=== PATIENT | male | born 1950 | race Caucasian/White ===

== ENCOUNTER → 2017-07-19 | Outpatient (CLI) | payer BC ==
--- NOTE | 2017-07-19 19:20 | MR ---
EXAMINATION TYPE: MR knee RT wo con DATE OF EXAM: 07/19/2017 COMPARISON: NONE HISTORY: Rt knee inner pain/medial since Jun 15, 2017 that improved one week ago per patient TECHNIQUE: Multiplanar, multisequence images of the knee is performed without IV contrast. FINDINGS: MEDIAL MENISCUS: Anterior horn is intact without tear. Triangular shape increased signal posterior ho rn medial meniscus does not extend to articular surface. LATERAL MENISCUS: Posterior horn has irregular signal and fraying inferiorly extending to articular s urface. Anterior horn has a vertical oblique signal extending to articular surface sagittal image 24. CRUCIATE LIGAMENTS: The anterior and posterior cruciate ligaments are intact and unremarkable. COLLATERAL LIGAMENTS: The medial collateral ligament and lateral collateral ligament complex are inta ct and unremarkable. EXTENSOR MECHANISM: Visualized quadriceps and patellar tendons are intact. EFFUSION: There is a small suprapatellar joint effusion. POPLITEAL CYST: No popliteal/torres cyst. TRICOMPARTMENT SPACES: There is mild to moderate tricompartment joint space loss and spurring. CARTILAGE: There is cartilaginous loss with fissuring medial tibiofemoral compartment. No full-thickn ess loss is present. No significant chondromalacia patella noted. BONE MARROW SIGNAL: No focal abnormal marrow signal is appreciated. OTHER: No additional significant abnormality is appreciated. IMPRESSION: 1. Background mild to moderate tricompartment degenerative changes as detailed above. 2. Small suprapatellar joint effusion. 3. Suspected full-thickness tears anterior and posterior horn of lateral meniscus. 4. Probable intrasubstance tear posterior horn medial meniscus
== END | disposition home or self-care (01) ==
LOC: RADMRIMAIN 18:16
PROVIDERS: ATTEND Orthopaedic Surgery
DX: M25.461 Effusion, right knee (principal); M76.891 Other specified enthesopathies of right lower limb, excluding foot

== ENCOUNTER 2017-08-22 09:45 | Day surgery (SDC) | payer BC ==
[2017-08-17 13:08] VITALS: BMI 39.9
--- NOTE | 2017-08-21 10:58 | HP ---
HISTORY AND PHYSICAL HISTORY: Kishan Perez is a 67-year-old patient seen with right knee pain. We discussed treatment options. He elected to proceed with arthroscopy. Consent was obtained. Medical clearance provided by Dr. Gonzalez. PAST MEDICAL HISTORY: [id number], diabetes, hypertension, gout. PAST SURGICAL HISTORY: Appendectomy, left knee arthroscopy. DAILY MEDICATIONS: Allopurinol, glipizide, lisinopril, metformin, Propanol. ALLERGIES: PENICILLIN, SULFA. SOCIAL HISTORY: Patient denies current tobacco use. PHYSICAL EXAMINATION: Right knees range of motion is -1 to 120 degrees. There is a mild effusion present. Tenderness along the medial lateral joint lines. There is a positive medial Shaniqua's, positive lateral Shaniqua's. Ligaments stable. Hip rotation without pain. Distal neurovascular exam intact. RADIOGRAPHS: Right knee radiographs reveal moderate osteoarthritis an MRI of the right knee reveal medial lateral meniscal tears. IMPRESSION: 1. Internal derangement, right knee with medial lateral meniscal tears. 2. Hypertension. 3. Fpw-[id number]-[id number] diabetes. PLAN: Right knee arthroscopy with partial meniscectomy and debridement. MMODL / IJN: [id number] /
[~2017-08-22 09:45] MED LIST: LACTATED RINGERS 1,000 ML IV SCH; MORPHINE SULFATE 4 MG/ML SYRINGE IV PRN; ONDANSETRON 4 MG/2 ML VIAL IVP PRN
[2017-08-22] MEDS ORDERED: ONDANSETRON 4 MG/2 ML VIAL ONE (10:43)
[2017-08-22 10:48] LABS: Glucose,Whole Blood 222 mg/dL (75-99)
[2017-08-22] MEDS ORDERED: PROPOFOL 10 MG/ML 20 ML VIAL IV ONE (12:54)
[2017-08-22] MEDS ORDERED: fentaNYL (PF) 50 MCG/ML 2 ML AMP ONE (12:54)
[2017-08-22] MEDS ORDERED: MIDAZOLAM 2 MG/2 ML VIAL ONE (12:54)
[2017-08-22] MEDS ORDERED: SUCCINYLCHOLINE CHLORIDE 100 MG/5 ML SYR IV ONE (12:54)
[2017-08-22] MEDS ORDERED: LIDOCAINE 1% INJ 10MG/ML (20 ML MDV) ONE (12:54)
[2017-08-22] MEDS ORDERED: ePHEDrine SULFATE/0.9% NACL/PF 50 MG/5 ML SYRINGE IV ONE (12:54)
[2017-08-22] MEDS ORDERED: BUPIVACAINE (PF) 0.25% 30 ML VIAL SQ ONE (13:18)
[2017-08-22] MEDS ORDERED: LACTATED RINGERS 1,000 ML IV ONE (13:35)
--- NOTE | 2017-08-22 13:48 | P.OP ---
Date of Procedure: 08/22/17 Preoperative Diagnosis: Internal derangement right knee Postoperative Diagnosis: 1. Tear medial and lateral meniscus right knee 2. Grade 3 chondromalacia medial femoral condyle right knee 3. Grade 3 chondromalacia lateral femoral condyle right knee 4. Grade 2 chondromalacia patella right knee 5. Reactive synovitis medial and suprapatellar compartments right knee Procedure(s) Performed: 1. Arthroscopic partial medial and lateral meniscectomy right knee 2. Arthroscopic chondroplasty medial femoral condyle right knee 3. Arthroscopic chondroplasty lateral femoral condyle right knee 4. Arthroscopic chondroplasty patella right knee 5. Arthroscopic partial synovectomy medial and suprapatellar compartments right knee Implants: none Anesthesia: CARLEENA, local Surgeon: Messi Carpio Estimated Blood Loss (ml): 7 Pathology: none sent Condition: stable Disposition: PACU Indications for Procedure: 67-year-old patient seen with progressive right knee pain. After treatment options were discussed, he elected to proceed with arthroscopy. Operative Findings: see description of procedure Description of Procedure: Patient was taken to the operative suite. Patient underwent a general anesthetic by the department of anesthesia. Patient was given preoperative antibiotics. The right lower extremity was placed in a well-padded arthroscopic leg covington. The right leg was prepped and draped in the normal sterile orthopedic fashion. A lateral parapatellar and suprapatellar incision was made. Trochars were inserted. Arthroscopy was initiated. Suprapatellar pouch revealed diffuse thick reactive synovitis. The patellofemoral joint appeared to articulate congruently. There grade 2 chondromalacia with osteochondral tears present mainly involving the lateral facet. The scope was guided into the medial gutter. No loose bodies or plica were identified. The scope was then guided into the medial compartment. A medial parapatellar incision was made. Trocar inserted followed by probe. There was a radial tear posterior horn medial meniscus. There were grade 3 chondromalacia changes of the medial femoral condyle with osteochondral tears. There was reactive synovitis anteriorly. I performed a partial medial meniscectomy down to stable tissue. I performed a chondroplasty of the medial femoral condyle down to stable tissue followed by partial synovectomy. The residual meniscus and osteochondral surface was stable. Scope and probe were then guided into the intercondylar notch. Cruciates were identified, probed and found to be stable. The scope and probe were then guided into lateral compartment. There was a complex tear posterior horn lateral meniscus which extended into the midbody. There were grade 3 chondromalacia changes of the lateral femoral condyle with osteochondral tears present. No reactive synovitis. I performed a partial lateral meniscectomy down to stable tissue. I performed a chondroplasty of the lateral femoral condyle down to stable tissue. I performed a partial synovectomy. The residual meniscus and osteochondral surface were both stable. The scope was in guided back into the suprapatellar compartment. I introduced a motorized shaver into the suprapatellar compartment. I debrided some piecemeal fragments of meniscus. I performed a chondroplasty of the patella down to stable tissue. I performed a partial synovectomy. Shaver was removed. I took one more look around the entire knee, no residual debris. Instruments were now removed from the joint. The joint was infiltrated with .25 % Marcaine. Steri-Strips were applied to the portal sites. Sterile dressings were applied. The patient was placed into a NIXON hose. No tourniquet was utilized. The patient was awakened, transferred to a bed and taken to recovery stable satisfactory condition.
[2017-08-22 13:58] VITALS: TEMP 97
[2017-08-22 14:10] LABS: Glucose,Whole Blood 148 mg/dL (75-99)
[2017-08-22 14:58] VITALS: RESP 16
[2017-08-22 15:17] VITALS: BP 142/80; PULSE 70
== END 2017-08-22 15:45 | disposition home or self-care (01) ==
LOC: OR 09:45
PROVIDERS: ATTEND Orthopaedic Surgery
DX: S83.241A Other tear of medial meniscus, current injury, right knee, initial encounter (principal); S83.281A Other tear of lateral meniscus, current injury, right knee, initial encounter; X58.XXXA Exposure to other specified factors, initial encounter; M94.261 Chondromalacia, right knee; M22.41 Chondromalacia patellae, right knee; M65.861 Other synovitis and tenosynovitis, right lower leg; M25.461 Effusion, right knee; M17.11 Unilateral primary osteoarthritis, right knee; E11.9 Type 2 diabetes mellitus without complications; I10 Essential (primary) hypertension; M10.9 Gout, unspecified; R25.1 Tremor, unspecified; Z79.84 Long term (current) use of oral hypoglycemic drugs; Z79.899 Other long term (current) drug therapy; Z88.6 Allergy status to analgesic agent; Z88.0 Allergy status to penicillin; Z88.2 Allergy status to sulfonamides
CPT/HCPCS: 29880; J2250; J0690; J2001; J3010; J0330; J2704

== ENCOUNTER 2018-11-07 18:36 | Inpatient (IN) | payer MEDICARE, OTHER ==
[2018-11-07] MEDS ORDERED: ACETAMINOPHEN TAB 500 MG TAB PO STA (19:23)
--- NOTE | 2018-11-07 19:29 | ED ---
General Adult HPI - General Chief complaint: Recheck/Abnormal Lab/Rx Stated complaint: Hyperglycemia Time Seen by Provider: 11/07/18 18:48 Source: patient, EMS Mode of arrival: EMS Limitations: no limitations - History of Present Illness Initial comments: 68-year-old male patient with past medical history significant for diabetes mellitus presents to the emergency department today for evaluation of elevated blood sugar. Patient states he did call EMS because he was too weak to get up on his own. Patient is febrile with a temperature of 102F. Patient states his blood sugar was 476 prior to coming in. Patient states that he was recently started on insulin" adults this week however his sugars continued to be elevated. Patient states he is currently being treated for urinary tract infection, states he has been taking antibiotics for 1 week. Denies any nausea, vomiting, chest pain, shortness of breath. Denies any abdominal pain. Patient denies any recent rash, shortness breath, chest pain, diarrhea, constipation, back pain, numbness, tingling, dizziness, weakness, headache, visual changes, or any other complaints. - Related Data Home Medications Medication Instructions Recorded Confirmed Allopurinol [Zyloprim] 300 mg PO DAILY 08/17/17 11/07/18 Propranolol HCl [Propranolol HCl 160 mg PO BID 08/17/17 11/07/18 ER] glipiZIDE [Glucotrol] 5 mg PO BID 08/17/17 11/07/18 Insulin Detemir [Levemir Flextouch] 20 units SQ HS 11/07/18 11/07/18 Allergies Allergy/AdvReac Type Severity Reaction Status Date / Time Sulfa (Sulfonamide Allergy Severe Anaphylaxis Verified 11/07/18 18:46 Antibiotics) Penicillins Allergy Unknown Unknown Verified 11/07/18 18:46 Childhood Review of Systems ROS Statement: Those systems with pertinent positive or pertinent negative responses have been documented in the HPI. ROS Other: All systems not noted in ROS Statement are negative. Past Medical History Past Medical History: Diabetes Mellitus Additional Past Medical History / Comment(s): GOUT, BENIGN ESSENTIAL TREMORS., STATES NUMBNESS FROM KNEES TO FEET CAUSING TROUBLE WITH BALANCE-USING CANE., PT STATES LISINOPRIL TAKE TO PROTECT KIDNEYS. History of Any Multi-Drug Resistant Organisms: None Reported Past Surgical History: Orthopedic Surgery Additional Past Surgical History / Comment(s): LEFT KNEE ARTHROSCOPIC Past Anesthesia/Blood Transfusion Reactions: No Reported Reaction Past Psychological History: No Psychological Hx Reported Smoking Status: Former smoker Past Alcohol Use History: Rare Past Drug Use History: None Reported - Past Family History Father Family Medical History: Cancer Additional Family Medical History / Comment(s): PROSTATE CANCER General Exam Limitations: no limitations General appearance: alert, in no apparent distress, other (Physical well-develop ed, well-nourished adult male patient in no acute distress. Vital signs upon presentation are temperature 102.0F, pulse 90, respirations 18, blood pressure 136/101, pulse ox 93% on room air.) Eye exam: Present: normal appearance, PERRL, EOMI. Absent: scleral icterus, conjunctival injection, periorbital swelling ENT exam: Present: normal exam, normal oropharynx, mucous membranes moist Respiratory exam: Present: normal lung sounds bilaterally. Absent: respiratory distress, wheezes, rales, rhonchi, stridor Cardiovascular Exam: Present: regular rate, normal rhythm, normal heart sounds. Absent: systolic murmur, diastolic murmur, rubs, gallop, clicks GI/Abdominal exam: Present: soft, normal bowel sounds. Absent: distended, tenderness, guarding, rebound, rigid Neurological exam: Present: alert, oriented X3, CN II-XII intact Psychiatric exam: Present: normal affect, normal mood Skin exam: Present: warm, dry, intact, normal color. Absent: rash Course Vital Signs 11/07/18 11/07/18 11/07/18 18:46 18:51 19:30 Temperature 102 F H Pulse Rate 90 Respiratory 18 Rate Blood Pressure 136/101 136/101 O2 Sat by Pulse 93 L 96 95 Oximetry 11/07/18 11/07/18 11/07/18 20:00 20:30 21:30 Temperature Pulse Rate 93 95 84 Respiratory 16 18 Rate Blood Pressure 137/92 147/71 116/69 O2 Sat by Pulse 95 92 L Oximetry 11/07/18 22:00 Temperature 98.8 F Pulse Rate Respiratory Rate Blood Pressure O2 Sat by Pulse Oximetry EKG Findings - EKG Comments: EKG Findings:: EKG obtained in 1953 shows normal sinus rhythm with a left anterior fascicular block, ventricular rate is 93, RI interval 164, QRS duration 76, QT 336, QTc 417. No evidence of ST elevation or depression. Medical Decision Making - Medical Decision Making 68-year-old male patient presents to the emergency department today for evaluation of weakness, fever, and elevated blood sugar. Physical examination reveals soft nontender abdomen. Lungs are clear to auscultation with good air movement. Labs reviewed and did reveal elevated white blood cell count 18,000, neutrophil count 16.6, elevated potassium of 5.6. BUN 40, creatinine 2.13. Blood sugar was 461. Urinalysis did show 1+ protein, 4+ glucose, moderate blood, trace leukocyte esterase, 17 white blood cells, rare bacteria, and rare mucous. Acetone was negative. Lactic acid 2.3. 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 Patient did just complete a prescription for Macrobid for urinary tract infection, given current urine result we will treat for urinary tract infection, failed outpatient treatment. With elevated lactic and white blood cell count as well as fever patient has been diagnosed with sepsis. We'll start Rocephin. Give IV fluids. He is given insulin for elevated blood sugar. He'll be admitted to [facility]. - Lab Data Result diagrams: 11/07/18 19:40 11/07/18 19:40 Lab Results 11/07/18 11/07/18 11/07/18 Range/Units 19:40 19:40 19:40 WBC 18.2 H (3.8-10.6) k/uL RBC 4.42 (4.30-5.90) m/uL Hgb 13.4 (13.0-17.5) gm/dL Hct 44.1 (39.0-53.0) % MCV 99.8 (80.0-100.0) fL MCH 30.3 (25.0-35.0) pg MCHC 30.4 L (31.0-37.0) g/dL RDW 14.0 (11.5-15.5) % Plt Count 146 L (150-450) k/uL Neutrophils % 91 % Lymphocytes % 4 % Monocytes % 4 % Eosinophils % 0 % Basophils % 0 % Neutrophils # 16.6 H (1.3-7.7) k/uL Lymphocytes # 0.7 L (1.0-4.8) k/uL Monocytes # 0.6 (0-1.0) k/uL Eosinophils # 0.0 (0-0.7) k/uL Basophils # 0.0 (0-0.2) k/uL PT 10.6 (9.0-12.0) sec INR 1.0 (<1.2) APTT 22.8 (22.0-30.0) sec Sodium 131 L (137-145) mmol/L Potassium 5.6 H (3.5-5.1) mmol/L Chloride 97 L (98-107) mmol/L Carbon Dioxide 21 L (22-30) mmol/L Anion Gap 13 mmol/L BUN 40 H (9-20) mg/dL Creatinine 2.13 H (0.66-1.25) mg/dL Est GFR (CKD-EPI)AfAm 36 (>60 ml/min/1.73 sqM) Est GFR (CKD-EPI)NonAf 31 (>60 ml/min/1.73 sqM) Glucose 461 H (74-99) mg/dL POC Glucose (mg/dL) (75-99) mg/dL POC Glu Filter Tip Inspector ID Plasma Lactic Acid [place] (0.7-2.0) mmol/L Calcium 9.3 (8.4-10.2) mg/dL Total Bilirubin 0.8 (0.2-1.3) mg/dL AST 27 (17-59) U/L ALT 22 (21-72) U/L Alkaline Phosphatase 100 (38-126) U/L Total Protein 6.5 (6.3-8.2) g/dL Albumin 3.8 (3.5-5.0) g/dL Urine Color Urine Appearance (Clear) Urine pH (5.0-8.0) Ur Specific [place] (1.001-1.035) Urine Protein (Negative) Urine Glucose (UA) (Negative) Urine Ketones (Negative) Urine Blood (Negative) Urine Nitrite (Negative) Urine Bilirubin (Negative) Urine Urobilinogen (<2.0) mg/dL Ur Leukocyte Esterase (Negative) Urine RBC (0-5) /hpf Urine WBC (0-5) /hpf Ur Squamous Epith Cells (0-4) /hpf Urine Bacteria (None) /hpf Urine Mucus (None) /hpf Acetone, Qual (Negative) 11/07/18 11/07/18 11/07/18 Range/Units 19:40 19:50 20:35 WBC (3.8-10.6) k/uL RBC (4.30-5.90) m/uL Hgb (13.0-17.5) gm/dL Hct (39.0-53.0) % MCV (80.0-100.0) fL MCH (25.0-35.0) pg MCHC (31.0-37.0) g/dL RDW (11.5-15.5) % Plt Count (150-450) k/uL Neutrophils % % Lymphocytes % % Monocytes % % Eosinophils % % Basophils % % Neutrophils # (1.3-7.7) k/uL Lymphocytes # (1.0-4.8) k/uL Monocytes # (0-1.0) k/uL Eosinophils # (0-0.7) k/uL Basophils # (0-0.2) k/uL PT (9.0-12.0) sec INR (<1.2) APTT (22.0-30.0) sec Sodium (137-145) mmol/L Potassium (3.5-5.1) mmol/L Chloride (98-107) mmol/L Carbon Dioxide (22-30) mmol/L Anion Gap mmol/L BUN (9-20) mg/dL Creatinine (0.66-1.25) mg/dL Est GFR (CKD-EPI)AfAm (>60 ml/min/1.73 sqM) Est GFR (CKD-EPI)NonAf (>60 ml/min/1.73 sqM) Glucose (74-99) mg/dL POC Glucose (mg/dL) (75-99) mg/dL POC Glu Filter Tip Inspector ID Plasma Lactic Acid [place] 2.3 H* (0.7-2.0) mmol/L Calcium (8.4-10.2) mg/dL Total Bilirubin (0.2-1.3) mg/dL AST (17-59) U/L ALT (21-72) U/L Alkaline Phosphatase (38-126) U/L Total Protein (6.3-8.2) g/dL Albumin (3.5-5.0) g/dL Urine Color Light Yellow Urine Appearance Cloudy (Clear) Urine pH 5.0 (5.0-8.0) Ur Specific [place] 1.018 (1.001-1.035) Urine Protein 1+ H (Negative) Urine Glucose (UA) 4+ H (Negative) Urine Ketones Negative (Negative) Urine Blood Moderate H (Negative) Urine Nitrite Positive (Negative) Urine Bilirubin Negative (Negative) Urine Urobilinogen <2.0 (<2.0) mg/dL Ur Leukocyte Esterase Trace H (Negative) Urine RBC 4 (0-5) /hpf Urine WBC 17 H (0-5) /hpf Ur Squamous Epith Cells <1 (0-4) /hpf Urine Bacteria Rare H (None) /hpf Urine Mucus Rare H (None) /hpf Acetone, Qual Negative (Negative) 11/07/18 Range/Units 21:08 WBC (3.8-10.6) k/uL RBC (4.30-5.90) m/uL Hgb (13.0-17.5) gm/dL Hct (39.0-53.0) % MCV (80.0-100.0) fL MCH (25.0-35.0) pg MCHC (31.0-37.0) g/dL RDW (11.5-15.5) % Plt Count (150-450) k/uL Neutrophils % % Lymphocytes % % Monocytes % % Eosinophils % % Basophils % % Neutrophils # (1.3-7.7) k/uL Lymphocytes # (1.0-4.8) k/uL Monocytes # (0-1.0) k/uL Eosinophils # (0-0.7) k/uL Basophils # (0-0.2) k/uL PT (9.0-12.0) sec INR (<1.2) APTT (22.0-30.0) sec Sodium (137-145) mmol/L Potassium (3.5-5.1) mmol/L Chloride (98-107) mmol/L Carbon Dioxide (22-30) mmol/L Anion Gap mmol/L BUN (9-20) mg/dL Creatinine (0.66-1.25) mg/dL Est GFR (CKD-EPI)AfAm (>60 ml/min/1.73 sqM) Est GFR (CKD-EPI)NonAf (>60 ml/min/1.73 sqM) Glucose (74-99) mg/dL POC Glucose (mg/dL) 418 H (75-99) mg/dL POC Glu Filter Tip Inspector ID Luanne Sprague Plasma Lactic Acid [place] (0.7-2.0) mmol/L Calcium (8.4-10.2) mg/dL Total Bilirubin (0.2-1.3) mg/dL AST (17-59) U/L ALT (21-72) U/L Alkaline Phosphatase (38-126) U/L Total Protein (6.3-8.2) g/dL Albumin (3.5-5.0) g/dL Urine Color Urine Appearance (Clear) Urine pH (5.0-8.0) Ur Specific [place] (1.001-1.035) Urine Protein (Negative) Urine Glucose (UA) (Negative) Urine Ketones (Negative) Urine Blood (Negative) Urine Nitrite (Negative) Urine Bilirubin (Negative) Urine Urobilinogen (<2.0) mg/dL Ur Leukocyte Esterase (Negative) Urine RBC (0-5) /hpf Urine WBC (0-5) /hpf Ur Squamous Epith Cells (0-4) /hpf Urine Bacteria (None) /hpf Urine Mucus (None) /hpf Acetone, Qual (Negative) - Radiology Data Radiology results: report reviewed, image reviewed Two-view x-ray of the chest is obtained. Report reviewed in its entirety. Impression by Dr. Santizo shows no active cardiopulmonary disease. Normal heart. Disposition Clinical Impression: Hyperglycemia, Sepsis, Urinary tract infection, Failure of outpatient treatment Disposition: ADMITTED IP TO THIS [facility] Condition: Serious Decision to Admit Reason: Admit from EC Decision Date: 11/07/18 Decision Time: 22:08
[2018-11-07 19:49] LABS: Basophils % (A) 0 %; Eosinophils % (A) 0 %; HCT 44.1 % (39.0-53.0); HGB 13.4 gm/dL (13.0-17.5); Lymphocytes # (A) 0.7 k/uL (1.0-4.8); Lymphocytes % (A) 4 %; MCH 30.3 pg (25.0-35.0); MCHC 30.4 g/dL (31.0-37.0); MCV 99.8 fL (80.0-100.0); Mean Platelet Volume 9.2; Monocytes # (A) 0.6 k/uL (0-1.0); Monocytes % (A) 4 %; Neutrophils # (A) 16.6 k/uL (1.3-7.7); Neutrophils % (A) 91 %; Platelet Count 146 k/uL (150-450); RBC 4.42 m/uL (4.30-5.90); WBC 18.2 k/uL (3.8-10.6)
[2018-11-07] MEDS: SODIUM CHLORIDE 0.9% 500 ML 500 ML IV SCH (19:54)
[2018-11-07 19:58] LABS: Albumin 3.8 g/dL (3.5-5.0); Calcium 9.3 mg/dL (8.4-10.2); Potassium 5.6 mmol/L (3.5-5.1); Total Bilirubin 0.8 mg/dL (0.2-1.3); Total Protein 6.5 g/dL (6.3-8.2)
[2018-11-07 20:01] LABS: Partial Thromboplastin Time 22.8 sec (22.0-30.0); Prothrombin Time 10.6 sec (9.0-12.0)
[2018-11-07 20:09] LABS: Appearance,Urine Cloudy (Clear); Bacteria,Urine Rare /hpf; Bilirubin,Urine Negative (Negative); Blood,Urine Moderate (Negative); Color,Urine Light Yellow; Glucose,Urine (UA) 4+ (Negative); Ketones,Urine Negative (Negative); Leukocyte Esterase,Urine Trace (Negative); Mucus,Urine Rare /hpf; Nitrite,Urine Positive (Negative); Protein,Urine 1+ (Negative); RBC,Urine 4 /hpf (0-5); Specific Gravity,Urine 1.018 (1.001-1.035); Squamous Epithelial Cell,Urine <1 /hpf (0-4); Urobilinogen,Urine <2.0 mg/dL (<2.0); WBC,Urine 17 /hpf (0-5)
[2018-11-07] MEDS ORDERED: INSULIN ASPART (NovoLOG) 100 UNIT/ML VIAL SQ ONE ×3 (20:28→23:29)
--- NOTE | 2018-11-07 20:30 | XR ---
EXAMINATION TYPE: XR chest 2V DATE OF EXAM: 11/07/2018 COMPARISON: NONE HISTORY: Hyperglycemia TECHNIQUE: Frontal and lateral views of the chest are obtained. FINDINGS: Heart and mediastinum are normal. Lungs are clear. There is no pleural effusion. Bony thor ax is intact there are chest leads. IMPRESSION: No active cardiopulmonary disease. Normal heart.
[2018-11-07 21:11] LABS: Glucose,Whole Blood 418 mg/dL (75-99)
[2018-11-07] MEDS ORDERED: NALOXONE 0.4 MG/ML 1 ML VIAL IV PRN (22:04)
[2018-11-07 23:05] LABS: Glucose,Whole Blood 340 mg/dL (75-99)
--- NOTE | 2018-11-07 23:43 | P.HPIM ---
History of Present Illness H&P Date: 11/07/18 Chief Complaint: Generalized weakness increased blood sugar 68-year-old male with history of diabetes, CK D. Patient reports that he recently was diagnosed with urinary tract infection and finished a course of Macrobid however he noticed that the symptoms has not improved, he reports symptoms of neck area and frequency, and now he feels incomplete emptying of his bladder but denies any dysuria or hematuria denies any flank pain nausea or vomiting. He reports fevers and chills. And feeling generalized weakness. He reports difficulties with controlling his blood sugar and he was recently switched from oral hypoglycemic medications to insulin for better control of his blood sugar however he notices that his blood sugar today was very high at 460 and decided to come to the hospital. He called EMS and he was brought in here. Patient denies any headache changes in vision or hearing denies any focal neuro deficits. Denies any GI bleeding. In the ED was found to have high blood sugar but acetones were negative, patient has elevated creatinine but patient indicated that he has history of CK D. Patient was febrile in the ED and was started on Rocephin for failed outpatient therapy off UTI. Review of Systems Pertinent positives as noted in HPI. All other systems were reviewed and are negative Past Medical History Past Medical History: Diabetes Mellitus, Renal Disease Additional Past Medical History / Comment(s): GOUT, BENIGN ESSENTIAL TREMORS., STATES NUMBNESS FROM KNEES TO FEET CAUSING TROUBLE WITH BALANCE-USING CANE., PT STATES LISINOPRIL TAKE TO PROTECT KIDNEYS. History of Any Multi-Drug Resistant Organisms: None Reported Past Surgical History: Orthopedic Surgery Additional Past Surgical History / Comment(s): LEFT KNEE ARTHROSCOPIC Past Anesthesia/Blood Transfusion Reactions: No Reported Reaction Past Psychological History: No Psychological Hx Reported Smoking Status: Former smoker Past Alcohol Use History: Rare Past Drug Use History: None Reported - Past Family History Father Family Medical History: Cancer Additional Family Medical History / Comment(s): PROSTATE CANCER Medications and Allergies Home Medications Medication Instructions Recorded Confirmed Type Allopurinol [Zyloprim] 300 mg PO DAILY 08/17/17 11/07/18 History Propranolol HCl [Propranolol HCl 160 mg PO BID 08/17/17 11/07/18 History ER] glipiZIDE [Glucotrol] 5 mg PO BID 08/17/17 11/07/18 History Insulin Detemir [Levemir Flextouch] 20 units SQ HS 11/07/18 11/07/18 History Allergies Allergy/AdvReac Type Severity Reaction Status Date / Time Sulfa (Sulfonamide Allergy Severe Anaphylaxis Verified 11/07/18 18:46 Antibiotics) Penicillins Allergy Unknown Unknown Verified 11/07/18 18:46 Childhood Physical Exam Vitals: Vital Signs Temp Pulse Resp BP Pulse Ox 11/07/18 21:30 84 116/69 92 L 11/07/18 20:30 95 18 147/71 11/07/18 20:00 93 16 137/92 95 11/07/18 19:30 136/101 95 11/07/18 18:51 96 11/07/18 18:46 102 F H 90 18 136/101 93 L Intake and Output 11/07/18 11/07/18 11/07/18 06:59 14:59 22:59 Other: Weight 115.666 kg Constitutional: No acute distress, conversant, pleasant, well-developed Eyes: Anicteric sclerae, moist conjunctiva, no lid-lag Pupils equal round reactive to light ENMT: NC/AT Oropharynx clear, no erythema, or exudates Neck: Supple, FROM, no masses, or JVD No carotid bruits No thyromegaly Lungs: Clear to auscultation Clear to percussion Normal respiratory effort, no accessory muscle use Cardiovascular: Heart regular in rate and rhythm, No murmurs, gallops, or rubs No peripheral edema, capillary refill is immediate Abdominal: Soft Nontender, no guarding, rebound or rigidity Abdomen moving with respiration Normoactive bowel sounds No hepatomegaly, No splenomegaly No palpable mass No abdominal wall hernia noted Skin: Normal temperature, tone, texture, turgor No induration No subcutaneous nodules No rash, lesions No ulcers Extremities: No digital cyanosis No clubbing Pedal pulses intact and symmetrical Radial pulses intact and symmetrical No calf tenderness Psychiatric: Alert and oriented to person, place and time Appropriate affect fair judgment Neuro Muscles Strength 5/5 in all 4 extremities Sensation to light touch grossly present except for slightly decreased sensation over bilateral feet Cranial nerves II-XII grossly intact No focal sensory deficits Lymphatics: no palpable cervical or supraclavicular , or inguinal lymph nodes Results CBC & Chem 7: 11/07/18 19:40 11/07/18 19:40 Labs: Abnormal Lab Results - Last 24 Hours (Table) 11/07/18 11/07/18 11/07/18 Range/Units 19:40 19:40 19:50 WBC 18.2 H (3.8-10.6) k/uL MCHC 30.4 L (31.0-37.0) g/dL Plt Count 146 L (150-450) k/uL Neutrophils # 16.6 H (1.3-7.7) k/uL Lymphocytes # 0.7 L (1.0-4.8) k/uL Sodium 131 L (137-145) mmol/L Potassium 5.6 H (3.5-5.1) mmol/L Chloride 97 L (98-107) mmol/L Carbon Dioxide 21 L (22-30) mmol/L BUN 40 H (9-20) mg/dL Creatinine 2.13 H (0.66-1.25) mg/dL Glucose 461 H (74-99) mg/dL POC Glucose (mg/dL) (75-99) mg/dL Plasma Lactic Acid [place] (0.7-2.0) mmol/L Urine Protein 1+ H (Negative) Urine Glucose (UA) 4+ H (Negative) Urine Blood Moderate H (Negative) Ur Leukocyte Esterase Trace H (Negative) Urine WBC 17 H (0-5) /hpf Urine Bacteria Rare H (None) /hpf Urine Mucus Rare H (None) /hpf 11/07/18 11/07/18 Range/Units 20:35 21:08 WBC (3.8-10.6) k/uL MCHC (31.0-37.0) g/dL Plt Count (150-450) k/uL Neutrophils # (1.3-7.7) k/uL Lymphocytes # (1.0-4.8) k/uL Sodium (137-145) mmol/L Potassium (3.5-5.1) mmol/L Chloride (98-107) mmol/L Carbon Dioxide (22-30) mmol/L BUN (9-20) mg/dL Creatinine (0.66-1.25) mg/dL Glucose (74-99) mg/dL POC Glucose (mg/dL) 418 H (75-99) mg/dL Plasma Lactic Acid [place] 2.3 H* (0.7-2.0) mmol/L Urine Protein (Negative) Urine Glucose (UA) (Negative) Urine Blood (Negative) Ur Leukocyte Esterase (Negative) Urine WBC (0-5) /hpf Urine Bacteria (None) /hpf Urine Mucus (None) /hpf Assessment and Plan Assessment: 68-year-old male with history of diabetes and CK-MB. Admitted as an inpatient with anticipated length of stay more than 48 hours for sepsis secondary to UTI failed outpatient therapy. Patient also hyperglycemic but not in DKA. Patient will be placed on Rocephin UTI and given insulin to help control his blood sugar Plan: Sepsis secondary to UTI failed outpatient therapy Hyperglycemia without DKA Mild Hyperkalemia without EKG changes CK D stage III , Elevated creatinine unknown baseline, Mild lactic acidosis Mild thrombocytopenia Plan Follow-up cultures Rocephin daily Insulin subcu every 2 hours until blood sugar under control then insulin sliding scale Continue with Levemir IV fluid hydration Monitor vital signs Follow-up potassium and other labs in the morning Chronic conditions Essential tremor CK D Diabetes DVT prophylaxis heparin subcu 3 times a day Patient has peripheral neuropathy, complains of unsteady gait at times, uses a cane to ambulate PT/OT Surrogate decision-maker: Patient daughter CODE STATUS: Full code Discussed with: Patient, ER, RN Anticipated discharge: 48-[address]: Home A total of 60 minutes was spent on the care of this complex patient more than 50% of the time was spent in counseling and care coordination.
[2018-11-07] MEDS: PROPRANOLOL LA 80 MG CAP.SA.24H PO SCH (23:53)
[2018-11-07] MEDS: SODIUM CHLORIDE 0.9% 1,000 ML IV SCH (23:56)
[2018-11-08 01:12] LABS: Glucose,Whole Blood 260 mg/dL (75-99)
[2018-11-08] MEDS: ACETAMINOPHEN TAB 325 MG TAB PO PRN ×2 (02:22→19:37)
[2018-11-08 02:28] LABS: Glucose,Whole Blood 299 mg/dL (75-99)
[2018-11-08] MEDS: INSULIN DETEMIR (LEVEMIR) 100 UNIT/ML SYR SQ SCH ×2 (03:13→20:57)
[2018-11-08 07:22] LABS: Glucose,Whole Blood 261 mg/dL (75-99)
[2018-11-08] MEDS: HEPARIN SODIUM,PORCINE 5,000 UNIT/ML 1 ML VIAL SQ SCH ×3 (08:37→23:15)
[2018-11-08] MEDS: INSULIN ASPART (NovoLOG) 100 UNIT/ML VIAL SQ SCH ×5 (08:37→20:58)
[2018-11-08] MEDS: PROPRANOLOL LA 80 MG CAP.SA.24H PO SCH ×2 (08:37→20:57)
[2018-11-08] MEDS: ALLOPURINOL 300 MG TAB PO SCH (08:37)
[2018-11-08] MEDS: SODIUM CHLORIDE 0.9% 1,000 ML IV SCH ×2 (08:38→19:39)
[2018-11-08 10:09] LABS: Basophils % (A) 0 %; Eosinophils % (A) 0 %; HCT 40.2 % (39.0-53.0); HGB 12.3 gm/dL (13.0-17.5); Lymphocytes % (A) 6 %; MCH 30.7 pg (25.0-35.0); MCHC 30.6 g/dL (31.0-37.0); Macrocytosis Slight; Mean Platelet Volume 8.9; Monocytes # (A) 0.6 k/uL (0-1.0); Monocytes % (A) 4 %; Neutrophils # (A) 15.9 k/uL (1.3-7.7); Neutrophils % (A) 90 %; Platelet Count 135 k/uL (150-450); RBC 4.02 m/uL (4.30-5.90); WBC 17.7 k/uL (3.8-10.6)
[2018-11-08 10:25] LABS: Albumin 3.3 g/dL (3.5-5.0); Calcium 8.7 mg/dL (8.4-10.2); Potassium 4.7 mmol/L (3.5-5.1); Total Bilirubin 0.7 mg/dL (0.2-1.3)
[2018-11-08 12:15] LABS: Glucose,Whole Blood 271 mg/dL (75-99)
--- NOTE | 2018-11-08 12:40 | P.PN ---
Subjective Progress Note Date: 11/08/18 Principal diagnosis: Fevers Patient is a 68-year-old male to past medical history of diabetes mellitus type 2 insulin requiring, chronic kidney disease, prior nephrolithi asis, and recurrent urinary tract infections who completed a course of Macrobid but noted that his symptoms had not improved. In the ER he underwent an extensive evaluation. On arrival he had a fever of 102. Laboratory analysis showed white blood cell count 18.2, sodium 131, potassium 5.6, carbon dioxide 21, BUNs 40, creatinine 2.13, and blood sugar of 461. His lactic acid was 2.3. Urinalysis was consistent with possible urinary tract infection. He was started on IV fluids, Rocephin, and given a dose of insulin. Arrangements were made for admission. Blood culture came back positive with gram-negative bacilli. Patient seen and examined at bedside. He reports he has had 3 bladder inf ections since March. He is unsure if they have are clear. He has never had a history of prostate problems. He does have a history chronic kidney disease and sees Dr. Gomez. He also reports that he has had kidney stones in the past. He states he has some currently but he was told to drink lemonade. He denies any back or flank pain. He reports feeling overall fatigued and tired. His legs feel heavy. He feels very weak. He denies any chest pain, shortness of breath, nausea, or abdominal pain. Objective - Vital Signs Vital signs: Vital Signs Temp 98.8 F 11/08/18 05:01 Pulse 76 11/08/18 05:01 Resp 18 11/08/18 05:01 BP 112/66 11/08/18 05:01 Pulse Ox 97 11/08/18 05:01 Intake & Output 11/07/18 11/08/18 11/08/18 18:59 06:59 18:59 Weight 115.666 kg Other: # Voids 1 2 - Exam General: Ill appearing, no distress, appears at stated age, diaphoretic Derm: warm, dry Head: atraumatic, normocephalic, symmetric Eyes: EOMI, no lid lag, anicteric sclera Mouth: no lip lesion, mucus membranes moist Cardiovascular: S1S2 reg, no murmur, positive posterior tibial pulse bilateral, Lungs: Decreased breath sounds bilateral, no rhonchi, no rales , no accessory muscle use Abdominal: soft, nontender to palpation, no guarding, no appreciable organomeg jimbo Ext: no gross muscle atrophy, no edema, no contractures Neuro: CN II-XI grossly intact, no focal neuro deficits Psych: Alert, oriented, flat affect - Labs CBC & Chem 7: 11/08/18 08:59 11/08/18 08:59 Labs: Abnormal Lab Results - Last 24 Hours (Table) 11/07/18 11/07/18 11/07/18 Range/Units 19:40 19:40 19:50 WBC 18.2 H (3.8-10.6) k/uL RBC (4.30-5.90) m/uL Hgb (13.0-17.5) gm/dL MCHC 30.4 L (31.0-37.0) g/dL Plt Count 146 L (150-450) k/uL Neutrophils # 16.6 H (1.3-7.7) k/uL Lymphocytes # 0.7 L (1.0-4.8) k/uL Sodium 131 L (137-145) mmol/L Potassium 5.6 H (3.5-5.1) mmol/L Chloride 97 L (98-107) mmol/L Carbon Dioxide 21 L (22-30) mmol/L BUN 40 H (9-20) mg/dL Creatinine 2.13 H (0.66-1.25) mg/dL Glucose 461 H (74-99) mg/dL POC Glucose (mg/dL) (75-99) mg/dL Plasma Lactic Acid [place] (0.7-2.0) mmol/L Total Protein (6.3-8.2) g/dL Albumin (3.5-5.0) g/dL Urine Protein 1+ H (Negative) Urine Glucose (UA) 4+ H (Negative) Urine Blood Moderate H (Negative) Ur Leukocyte Esterase Trace H (Negative) Urine WBC 17 H (0-5) /hpf Urine Bacteria Rare H (None) /hpf Urine Mucus Rare H (None) /hpf 11/07/18 11/07/18 11/07/18 Range/Units 20:35 21:08 23:03 WBC (3.8-10.6) k/uL RBC (4.30-5.90) m/uL Hgb (13.0-17.5) gm/dL MCHC (31.0-37.0) g/dL Plt Count (150-450) k/uL Neutrophils # (1.3-7.7) k/uL Lymphocytes # (1.0-4.8) k/uL Sodium (137-145) mmol/L Potassium (3.5-5.1) mmol/L Chloride (98-107) mmol/L Carbon Dioxide (22-30) mmol/L BUN (9-20) mg/dL Creatinine (0.66-1.25) mg/dL Glucose (74-99) mg/dL POC Glucose (mg/dL) 418 H 340 H (75-99) mg/dL Plasma Lactic Acid [place] 2.3 H* (0.7-2.0) mmol/L Total Protein (6.3-8.2) g/dL Albumin (3.5-5.0) g/dL Urine Protein (Negative) Urine Glucose (UA) (Negative) Urine Blood (Negative) Ur Leukocyte Esterase (Negative) Urine WBC (0-5) /hpf Urine Bacteria (None) /hpf Urine Mucus (None) /hpf 11/08/18 11/08/18 11/08/18 Range/Units 01:10 02:25 07:19 WBC (3.8-10.6) k/uL RBC (4.30-5.90) m/uL Hgb (13.0-17.5) gm/dL MCHC (31.0-37.0) g/dL Plt Count (150-450) k/uL Neutrophils # (1.3-7.7) k/uL Lymphocytes # (1.0-4.8) k/uL Sodium (137-145) mmol/L Potassium (3.5-5.1) mmol/L Chloride (98-107) mmol/L Carbon Dioxide (22-30) mmol/L BUN (9-20) mg/dL Creatinine (0.66-1.25) mg/dL Glucose (74-99) mg/dL POC Glucose (mg/dL) 260 H 299 H 261 H (75-99) mg/dL Plasma Lactic Acid [place] (0.7-2.0) mmol/L Total Protein (6.3-8.2) g/dL Albumin (3.5-5.0) g/dL Urine Protein (Negative) Urine Glucose (UA) (Negative) Urine Blood (Negative) Ur Leukocyte Esterase (Negative) Urine WBC (0-5) /hpf Urine Bacteria (None) /hpf Urine Mucus (None) /hpf 11/08/18 11/08/18 11/08/18 Range/Units 08:59 08:59 11:57 WBC 17.7 H (3.8-10.6) k/uL RBC 4.02 L (4.30-5.90) m/uL Hgb 12.3 L (13.0-17.5) gm/dL MCHC 30.6 L (31.0-37.0) g/dL Plt Count 135 L (150-450) k/uL Neutrophils # 15.9 H (1.3-7.7) k/uL Lymphocytes # (1.0-4.8) k/uL Sodium 136 L (137-145) mmol/L Potassium (3.5-5.1) mmol/L Chloride (98-107) mmol/L Carbon Dioxide (22-30) mmol/L BUN 38 H (9-20) mg/dL Creatinine 2.22 H (0.66-1.25) mg/dL Glucose 284 H (74-99) mg/dL POC Glucose (mg/dL) 271 H (75-99) mg/dL Plasma Lactic Acid [place] (0.7-2.0) mmol/L Total Protein 6.0 L (6.3-8.2) g/dL Albumin 3.3 L (3.5-5.0) g/dL Urine Protein (Negative) Urine Glucose (UA) (Negative) Urine Blood (Negative) Ur Leukocyte Esterase (Negative) Urine WBC (0-5) /hpf Urine Bacteria (None) /hpf Urine Mucus (None) /hpf Microbiology - Last 24 Hours (Table) 11/07/18 19:40 Blood Culture Gram Stain - Preliminary Blood 11/07/18 19:40 Blood Culture - Final Blood 11/07/18 19:50 Urine Culture - Preliminary Urine,Voided Assessment and Plan Assessment: UTI with sepsis present on admission, gram-negative bacteremia -Continue with Rocephin -IV fluids -Antiemetics -Check renal ultrasound to verify if kidney stones are present -Check postvoid residuals to ensure complete bladder emptying Suspect CJD, unknown baseline creatinine -IV fluids -Avoid nephrotoxic agents -Follow BMP Diabetes mellitus type 2 with hyperglycemia -Sliding-scale insulin, Levemir, at fixed dose to sliding scale of 3 units -Follow blood sugars -Check hemoglobin A1c Thrombocytopenia, mild -Likely reactive secondary to sepsis -Follow CBC Morbid obesity with BMI 37.7 -Outpatient structured weight loss Resolved, hyperkalemia Lactic acidosis DVT prophylaxis: Heparin Discussed with: Patient Anticipated discharge: 3-[address]: home A total of 35 minutes was spent on the care of this complex patient more than 50% of the time was spent in counseling and care coordination.
--- NOTE | 2018-11-08 13:56 | US ---
EXAMINATION TYPE: US renals and bladder DATE OF EXAM: 11/08/2018 COMPARISON: NONE CLINICAL HISTORY: kidney stone, hydronephrosis. EXAM MEASUREMENTS: Right Kidney: 10.3 x 4.5 x 4.2 cm Left Kidney: 12.1 x 5.0 x 5.1 cm Technically difficult exam due to being performed portable. Patient had to stop exam to empty bladder , therefore bladder not imaged. Right Kidney: No hydronephrosis or masses seen Left Kidney: No hydronephrosis or masses seen Bladder: not well visualized Bilateral Jets seen: no There is no evidence for hydronephrosis at this point in time. No nephrolithiasis is seen. No tommie s are identified on image saved. When scanning the right kidney, the liver is heterogeneously hyperec hoic consistent with diffuse fatty infiltration. The urinary bladder is empty as patient had to void and is thus suboptimally evaluated. Bilateral ureteral jets are thus not seen. IMPRESSION: No hydronephrosis is evident bilaterally.
[2018-11-08 16:48] LABS: Glucose,Whole Blood 203 mg/dL (75-99)
[2018-11-08 20:48] LABS: Glucose,Whole Blood 281 mg/dL (75-99)
[2018-11-09 07:33] LABS: Glucose,Whole Blood 314 mg/dL (75-99)
[2018-11-09] MEDS: INSULIN ASPART (NovoLOG) 100 UNIT/ML VIAL SQ SCH ×7 (08:13→20:53)
[2018-11-09] MEDS: ALLOPURINOL 300 MG TAB PO SCH (08:15)
[2018-11-09] MEDS: HEPARIN SODIUM,PORCINE 5,000 UNIT/ML 1 ML VIAL SQ SCH ×3 (08:15→23:49)
[2018-11-09] MEDS: PROPRANOLOL LA 80 MG CAP.SA.24H PO SCH ×2 (08:16→20:53)
[2018-11-09 11:32] LABS: HCT 36.8 % (39.0-53.0); HGB 11.3 gm/dL (13.0-17.5); Hypochromasia Slight; MCH 30.8 pg (25.0-35.0); MCHC 30.6 g/dL (31.0-37.0); MCV 100.7 fL (80.0-100.0); Macrocytosis Slight; Mean Platelet Volume 9.5; Platelet Count 123 k/uL (150-450); RBC 3.66 m/uL (4.30-5.90); WBC 12.7 k/uL (3.8-10.6)
[2018-11-09 12:11] LABS: Glucose,Whole Blood 338 mg/dL (75-99)
[2018-11-09 12:12] LABS: Potassium 5.1 mmol/L (3.5-5.1)
[2018-11-09] MEDS: SODIUM CHLORIDE 0.9% 1,000 ML IV SCH ×2 (14:11→23:50)
--- NOTE | 2018-11-09 14:35 | P.PN ---
Subjective Progress Note Date: 11/09/18 Principal diagnosis: Fevers Patient is a 68-year-old male to past medical history of diabetes mellitus type 2 insulin requiring, chronic kidney disease, prior nephrolithi asis, and recurrent urinary tract infections who completed a course of Macrobid but noted that his symptoms had not improved. In the ER he underwent an extensive evaluation. On arrival he had a fever of 102. Laboratory analysis showed white blood cell count 18.2, sodium 131, potassium 5.6, carbon dioxide 21, BUNs 40, creatinine 2.13, and blood sugar of 461. His lactic acid was 2.3. Urinalysis was consistent with possible urinary tract infection. He was started on IV fluids, Rocephin, and given a dose of insulin. Arrangements were made for admission. Blood culture came back positive with gram-negative bacilli. Patient seen and examined at bedside. Patient reports feeling much better today than yesterday. He denies any nausea, vomiting, or diarrhea. Fatigue and weakness was much improved. Concerned about his elevated sugar levels. Objective - Vital Signs Vital signs: Vital Signs Temp 97.6 F 11/09/18 06:14 Pulse 70 11/09/18 06:14 Resp 18 11/09/18 06:14 BP 120/75 11/09/18 06:14 Pulse Ox 98 11/09/18 06:14 Intake & Output 11/08/18 11/09/18 11/09/18 18:59 06:59 18:59 Intake Total 1250 900 620 Output Total 500 Balance 1250 400 620 Intake: Intake, IV Titration 1250 Amount Sodium Chloride 0.9% 1, 1200 000 ml @ 150 mls/hr IV . Q6H40M [facility] Rx#:[id number] cefTRIAXone 1 gm In 50 Sodium Chloride 0.9% 50 ml @ 100 mls/hr IVPB Q12HR [facility] Rx#:[id number] Oral 900 620 Output: Urine 500 Other: Voiding Method Toilet # Voids 2 2 # Bowel Movements 3 - Exam General: Nontoxic, no distress, appears at stated age, diaphoretic Derm: warm, dry Head: atraumatic, normocephalic, symmetric Eyes: EOMI, no lid lag, anicteric sclera Mouth: no lip lesion, mucus membranes moist Cardiovascular: S1S2 reg, no murmur, positive posterior tibial pulse bilateral, Lungs: Decreased breath sounds bilateral, no rhonchi, no rales , no accessory muscle use Abdominal: soft, nontender to palpation, no guarding, no appreciable organomegaly Ext: no gross muscle atrophy, no edema, no contractures Neuro: CN II-XI grossly intact, no focal neuro deficits Psych: Alert, oriented, flat affect - Labs CBC & Chem 7: 11/09/18 10:41 11/09/18 10:41 Labs: Abnormal Lab Results - Last 24 Hours (Table) 11/08/18 11/08/18 11/09/18 Range/Units 16:46 20:35 07:05 WBC (3.8-10.6) k/uL RBC (4.30-5.90) m/uL Hgb (13.0-17.5) gm/dL Hct (39.0-53.0) % MCV (80.0-100.0) fL MCHC (31.0-37.0) g/dL Plt Count (150-450) k/uL Sodium (137-145) mmol/L Carbon Dioxide (22-30) mmol/L BUN (9-20) mg/dL Creatinine (0.66-1.25) mg/dL Glucose (74-99) mg/dL POC Glucose (mg/dL) 203 H 281 H 314 H (75-99) mg/dL Calcium (8.4-10.2) mg/dL 11/09/18 11/09/18 11/09/18 Range/Units 10:41 10:41 12:05 WBC 12.7 H (3.8-10.6) k/uL RBC 3.66 L (4.30-5.90) m/uL Hgb 11.3 L (13.0-17.5) gm/dL Hct 36.8 L (39.0-53.0) % MCV 100.7 H (80.0-100.0) fL MCHC 30.6 L (31.0-37.0) g/dL Plt Count 123 L (150-450) k/uL Sodium 134 L (137-145) mmol/L Carbon Dioxide 16 L (22-30) mmol/L BUN 38 H (9-20) mg/dL Creatinine 1.97 H (0.66-1.25) mg/dL Glucose 365 H (74-99) mg/dL POC Glucose (mg/dL) 338 H (75-99) mg/dL Calcium 8.0 L (8.4-10.2) mg/dL Microbiology - Last 24 Hours (Table) 11/07/18 19:40 Blood Culture Gram Stain - Preliminary Blood Blood Culture - Preliminary Gram Neg Bacilli 11/07/18 19:50 Urine Culture - Preliminary Urine,Voided Gram Neg Bacilli Assessment and Plan Assessment: UTI with sepsis present on admission, gram-negative bacteremia -Continue with Rocephin -IV fluids -Antiemetics -Renal ultrasound without hydronephrosis or renal stones -Post void residual less than 10 -Outpatient follow-up with urology Dr. Pope Diabetes mellitus type 2 with hyperglycemia -Sliding-scale insulin, Levemir increased , at fixed dose to sliding scale of 4 units -Follow blood sugars -Check hemoglobin A1c as outpatient Suspect CKD, unknown baseline creatinine -IV fluids -Avoid nephrotoxic agents -Follow BMP Thrombocytopenia, mild -Likely reactive secondary to sepsis -Follow CBC Anemia, unknown baseline - mild - may be related to CKD - Follow with nephro - outpatient follow-up Morbid obesity with BMI 37.7 -Outpatient structured weight loss Resolved, hyperkalemia Lactic acidosis DVT prophylaxis: Heparin Discussed with: Patient Anticipated discharge: 1-[address]: home A total of 35 minutes was spent on the care of this complex patient more than 50% of the time was spent in counseling and care coordination.
[2018-11-09 17:17] LABS: Glucose,Whole Blood 309 mg/dL (75-99)
[2018-11-09] MEDS ORDERED: INSULIN ASPART (NovoLOG) 100 UNIT/ML VIAL SQ ONE (17:30)
[2018-11-09 20:48] LABS: Glucose,Whole Blood 324 mg/dL (75-99)
[2018-11-09] MEDS ORDERED: INSULIN DETEMIR (LEVEMIR) 100 UNIT/ML SYR SQ SCH (21:00)
[2018-11-09 22:22] LABS: Glucose,Whole Blood 312 mg/dL (75-99)
[2018-11-10 07:11] LABS: Glucose,Whole Blood 208 mg/dL (75-99)
[2018-11-10] MEDS: INSULIN ASPART (NovoLOG) 100 UNIT/ML VIAL SQ SCH ×4 (07:53→12:58)
[2018-11-10] MEDS: ALLOPURINOL 300 MG TAB PO SCH (07:53)
[2018-11-10] MEDS: HEPARIN SODIUM,PORCINE 5,000 UNIT/ML 1 ML VIAL SQ SCH ×2 (07:54→17:11)
[2018-11-10] MEDS: PROPRANOLOL LA 80 MG CAP.SA.24H PO SCH (07:56)
[2018-11-10 12:02] LABS: Glucose,Whole Blood 270 mg/dL (75-99)
[2018-11-10 12:09] LABS: HCT 36.7 % (39.0-53.0); HGB 11.3 gm/dL (13.0-17.5); MCH 30.8 pg (25.0-35.0); MCHC 30.9 g/dL (31.0-37.0); MCV 99.9 fL (80.0-100.0); Macrocytosis Slight; Mean Platelet Volume 9.1; Platelet Count 143 k/uL (150-450); RBC 3.67 m/uL (4.30-5.90); RDW 14.1 % (11.5-15.5)
[2018-11-10 12:23] LABS: Calcium 8.6 mg/dL (8.4-10.2); Potassium 4.6 mmol/L (3.5-5.1)
[2018-11-10 13:06] VITALS: BMI 37.6
--- NOTE | 2018-11-10 13:28 | P.DS ---
Providers Date of admission: 11/07/18 21:48 Expected date of discharge: 11/10/18 Attending physician: Haylee Meredith MD Primary care physician: Birgit Thompson [facility] Course: Discharge Diagnosis: Klebsiella urinary tract infection with sepsis present on admission Klebsiella bacteremia related to UTI Diabetes mellitus type 2 with hyperglycemia Chronic kidney disease Thrombocytopenia Anemia Morbid obesity with BMI 37.7 Hyperkalemia Lactic acidosis Hospital Course: Patient is a 68-year-old male to past medical history of diabetes mellitus type 2 insulin requiring, chronic kidney disease, prior nephrolithiasis, and recurrent urinary tract infections who completed a course of Macrobid but noted that his symptoms had not improved. In the ER he unde rwent an extensive evaluation. On arrival he had a fever of 102. Laboratory analysis showed white blood cell count 18.2, sodium 131, potassium 5.6, carbon dioxide 21, BUNs 40, creatinine 2.13, and blood sugar of 461. His lactic acid was 2.3. Urinalysis was consistent with possible urinary tract infection. He was started on IV fluids, Rocephin, and given a dose of insulin. Arrangements were made for admission. Blood culture came back positive with gram-negative bacilli. UTI and bacteremia came back as Klebsiella. Patient struggled with his blood sugars during hospital stay. His Levemir was increased and he was on sliding scale. I discharge home he will continue with Levemir which is now up to 28 units. He was provided with the following instructions as well as a blood sugar log and a calendar on how to increase his levemir. Levemir: Tonight take 28 units if morning fasting blood sugar is greater than 150 for 2 days in a row you will go up to 2 units. (first time will be a total of 30 units) If fasting blood sugar is less than 120 then go down by 5 units that evening. Continue this pattern unit morning blood sugars are consistently b etween 120-150. Take your blood sugar 2 hours after dinner and make a log. If you ever feel like your blood sugar is low or high you should check in right away. He will complete an additional 5 days of Vantin as his urinary tract infection was susceptible to show this. He'll follow-up with Dr. Thompson in the next 1-2 days regarding his sugars. He will reschedule his appointment Dr. Pope of urology for further investigation as to why he gets recurrent UTIs. During his time here he had a renal and bladder ultrasound which was negative for any signs of hydronephrosis. He also had post void residuals that were less than 10. Patient seen and examined at bedside. Feeling better. Energy is back to baseline. Still having some frequent urination. No nausea, vomiting, diarrhea Vital signs reviewed and stable. General: non toxic, no distress, appears at stated age Derm: warm, dry Head: atraumatic, normocephalic, symmetric Eyes: EOMI, no lid lag, anicteric sclera Mouth: no lip lesion, mucus membranes moist Cardiovascular: S1S2 reg, no murmur, positive posterior tibial pulse bilateral, Lungs: CTA bilateral, no rhonchi, no rales , no accessory muscle use Abdominal: soft, nontender to palpation, no guarding, no appreciable organomegaly Ext: no gross muscle atrophy, no edema, no contractures Neuro: CN II-XI grossly intact, no focal neuro deficits Psych: Alert, oriented, appropriate affect A total of 60 minutes of time were spent preparing this complex discharge summary . Pertinent Studies: Renal ultrasound-no hydronephrosis Chest x-ray-no acute process Patient Condition at Discharge: Serious Plan - Discharge Summary New Discharge Prescriptions: New Cefpodoxime Proxetil [Vantin] 200 mg PO Q12HR #10 tab Continue glipiZIDE [Glucotrol] 5 mg PO BID Allopurinol [Zyloprim] 300 mg PO DAILY Propranolol HCl [Propranolol HCl ER] 160 mg PO BID Changed Insulin Detemir [Levemir Flextouch] 28 units SQ HS #0 Discharge Medication List Allopurinol [Zyloprim] 300 mg PO DAILY 08/17/17 [History] Propranolol HCl [Propranolol HCl ER] 160 mg PO BID 08/17/17 [History] glipiZIDE [Glucotrol] 5 mg PO BID 08/17/17 [History] Cefpodoxime Proxetil [Vantin] 200 mg PO Q12HR #10 tab 11/10/18 [Rx] Insulin Detemir [Levemir Flextouch] 28 units SQ HS #0 11/10/18 [Rx] Follow up Appointment(s)/Referral(s): Birgit Thompson MD [Primary Care Provider] - 1-2 days Activity/Diet/Wound Care/Special Instructions: Carb consistent diet Activity as tolerated Levemir: Tonight take 28 units if morning fasting blood sugar is greater than 150 for 2 days in a row you will go up to 2 units. (first time will be a total of 30 units) If fasting blood sugar is less than 120 then go down by 5 units that evening. Continue this pattern unit morning blood sugars are consistently between 120-150. Take your blood sugar 2 hours after dinner and make a log. If you ever feel like your blood sugar is low or high you should check in right away.
[2018-11-10] MEDS: SODIUM CHLORIDE 0.9% 1,000 ML IV SCH (14:44)
[2018-11-10 15:07] VITALS: BP 131/74; PULSE 92; RESP 16; TEMP 98.3
== END 2018-11-10 17:21 | disposition home or self-care (01) | DRG 872 ==
LOC: EC 18:36 → 4MS4W 21:48
PROVIDERS: ADMIT Internal Medicine; ATTEND Internal Medicine
DX: A41.50 Gram-negative sepsis, unspecified (principal); E87.2 Acidosis; N39.0 Urinary tract infection, site not specified; B96.1 Klebsiella pneumoniae [K. pneumoniae] as the cause of diseases classified elsewhere; B96.89 Other specified bacterial agents as the cause of diseases classified elsewhere; D64.9 Anemia, unspecified; D69.6 Thrombocytopenia, unspecified; E11.22 Type 2 diabetes mellitus with diabetic chronic kidney disease; E11.65 Type 2 diabetes mellitus with hyperglycemia; E66.01 Morbid (severe) obesity due to excess calories; Z68.37 Body mass index [BMI] 37.0-37.9, adult; E87.5 Hyperkalemia; G25.0 Essential tremor; E11.42 Type 2 diabetes mellitus with diabetic polyneuropathy; N18.9 Chronic kidney disease, unspecified; Z79.4 Long term (current) use of insulin; Z79.899 Other long term (current) drug therapy; Z80.42 Family history of malignant neoplasm of prostate; Z87.440 Personal history of urinary (tract) infections; Z87.442 Personal history of urinary calculi; Z87.891 Personal history of nicotine dependence; Z88.0 Allergy status to penicillin; Z88.2 Allergy status to sulfonamides
CPT/HCPCS: 36415; 71046; 76770; 80048; 80053; 81001; 82009; 83605; 85025; 85027; 85610; 85730; 87040; 87077; 87086; 87186; 93005; 94760; 96361; 96365; 99285

== ENCOUNTER 2021-04-04 12:37 | Inpatient (IN) | payer MEDICARE, OTHER ==
[2021-04-04] MEDS ORDERED: SODIUM CHLORIDE 0.9% 500 ML 500 ML IV STA (13:00)
[2021-04-04] MEDS ORDERED: ONDANSETRON 4 MG/2 ML VIAL IVP STA (13:00)
--- NOTE | 2021-04-04 13:25 | ED ---
Weakness HPI - General Chief complaint: Weakness Stated complaint: Weakness Time Seen by Provider: 04/04/21 12:54 Source: patient, EMS, RN notes reviewed, old records reviewed Mode of arrival: EMS Limitations: no limitations - History of Present Illness Initial comments: Patient is a 70-year-old male with history of diabetes, presenting to the emergency department via EMS with complaints of generalized weakness increasing over the past week. He states that the weakness really got worse last night, he went to get out of bed this morning and fell onto the ground. States he sat there for a couple hours trying to regain his strength, his was not able to lift him up to get back in the bed so they finally called EMS after about 4-5 hours of being on the ground. He states last time he felt this way he had a UTI, that was approximate 4-5 years ago. He did not hit his head when he fell, he is not on blood thinners. He denies any specific pains anywhere including no chest pain and no abdominal pain. He denies any shortness of breath. He states he has had some mild sinus congestion and a slight cough for the past couple days. Denies any fevers or chills. No vomiting but he has been having some intermittent bouts of nausea. His appetite has been low over the past couple days. He did manage to eat a little bit of breakfast this morning, has not been drinking and the same amount of water as he used to. He denies any dysuria or h ematuria, no back pain. He has no further complaints. His vital signs are stable upon arrival. - Related Data Home Medications Medication Instructions Recorded Confirmed Propranolol HCl [Propranolol HCl 160 mg PO BID 08/17/17 11/07/18 ER] allopurinoL [Zyloprim] 300 mg PO DAILY 08/17/17 11/07/18 Acetaminophen Tab [Tylenol Tab] 1,000 mg PO Q6HR PRN 04/04/21 04/04/21 Insulin Aspart [NovoLOG Flexpen] 10 units SQ AC-TID PRN 04/04/21 04/04/21 Insulin Detemir [Levemir Flextouch 70 units SQ BID 04/04/21 04/04/21 Pen] Lisinopril [Zestril] 10 mg PO HS 04/04/21 04/04/21 Semaglutide [Ozempic] 0.5 mg SQ TU 04/04/21 04/04/21 glipiZIDE [Glucotrol] 10 mg PO BID 04/04/21 04/04/21 Allergies Allergy/AdvReac Type Severity Reaction Status Date / Time Sulfa (Sulfonamide Allergy Severe Anaphylaxis Verified 04/04/21 16:58 Antibiotics) Penicillins Allergy Unknown Unknown Verified 04/04/21 16:58 Childhood Review of Systems ROS Statement: Those systems with pertinent positive or pertinent negative responses have been documented in the HPI. ROS Other: All systems not noted in ROS Statement are negative. Past Medical History Past Medical History: Diabetes Mellitus Additional Past Medical History / Comment(s): GOUT, BENIGN ESSENTIAL TREMORS., STATES NUMBNESS FROM KNEES TO FEET CAUSING TROUBLE WITH BALANCE-USING CANE., PT STATES LISINOPRIL TAKE TO PROTECT KIDNEYS. History of Any Multi-Drug Resistant Organisms: None Reported Past Surgical History: Orthopedic Surgery Additional Past Surgical History / Comment(s): LEFT and right KNEE ARTHROSCOPIC Past Anesthesia/Blood Transfusion Reactions: No Reported Reaction Past Psychological History: No Psychological Hx Reported Smoking Status: Former smoker Past Alcohol Use History: Rare Past Drug Use History: None Reported - Past Family History Father Family Medical History: Cancer Additional Family Medical History / Comment(s): PROSTATE CANCER General Exam - General Exam Comments Initial Comments: GENERAL: Patient is well-developed and well-nourished. Patient is nontoxic and in no acute distress. HEAD: Atraumatic, normocephalic. EYES: Pupils equal round and reactive to light, extraocular movements intact, sclera anicteric, conjunctiva are normal. Eyelids were unremarkable. ENT: Nares patent, oropharynx clear without exudates. Moist mucous membranes. NECK: Normal range of motion, supple without lymphadenopathy or JVD. LUNGS: Unlabored respirations. Breath sounds clear to auscultation bilaterally and equal. No wheezes rales or rhonchi. Slight cough noted. HEART: Regular rate and rhythm without murmurs, rubs or gallops. ABDOMEN: Soft, nontender, normoactive bowel sounds. No guarding, no rebound. No masses appreciated. : Deferred MUSCULOSKELETAL: Normal extremities with adequate strength and normal range of motion, no pitting or edema. No clubbing or cyanosis. NEUROLOGICAL: Patient is alert and oriented x 3. Motor and sensory are also intact. Cranial nerves II through XII grossly intact. Symmetrical smile. Normal speech, normal gait. PSYCH: Normal mood, normal affect. SKIN: Warm, Dry, normal turgor, no rashes or lesions noted. Limitations: no limitations Course Vital Signs 04/04/21 04/04/21 12:40 16:19 Temperature 96.7 F L Pulse Rate 81 83 Respiratory 18 18 Rate Blood Pressure 116/72 133/80 O2 Sat by Pulse 98 97 Oximetry EKG Findings - EKG Comments: EKG Findings:: Normal sinus rhythm left anterior fascicular block, left ventricular hypertrophy, possible lateral infarct, age undetermined. Ventricular rate 86, GA interval 188, QT 374. No signs of acute ST segment elevation. This is similar to his previous on 11/07/2018. Medical Decision Making - Medical Decision Making Patient is a 70-year-old male with history of diabetes, presenting for weakness times one week. He did fall today and was on the ground for proximally 4-5 hours before they finally called EMS. Patient's vital signs are stable upon arrival. He complains of no pain, mild cough starting a few days ago. Labs show dehydration with creatinine 1.84, BUN is 28, CK is 4048, with a small bump in the troponin is 0.044. I do believe this is secondary to dehydration, rhabdomyolysis. He has no chest pain, no shortness of breath. Urine does reveal lots of WBCs in clumps, bacteria. Urine culture is pending. Rapid covid is also positive. He was vaccinated and August. Chest x-ray shows no acute process. Patient was given fluids, will also be given covid Antibodies, he did agree to these. Patient will be admitted for dehydration, UTI. I will also get serial troponins, and continue him on fluids. Patient was given 1 g of Rocephin here in the ER. Patient accepted by Dr. Parikh. Case discussed with Dr. Agarwal. - Lab Data Result diagrams: 04/04/21 13:55 04/04/21 13:55 Lab Results 04/04/21 04/04/21 04/04/21 Range/Units 13:55 13:55 13:55 WBC 3.4 L (3.8-10.6) k/uL RBC 4.21 L (4.30-5.90) m/uL Hgb 12.5 L (13.0-17.5) gm/dL Hct 38.7 L (39.0-53.0) % MCV 91.8 (80.0-100.0) fL MCH 29.7 (25.0-35.0) pg MCHC 32.3 (31.0-37.0) g/dL RDW 15.5 (11.5-15.5) % Plt Count 87 L (150-450) k/uL MPV 9.4 Neutrophils % 60 % Lymphocytes % 28 % Monocytes % 7 % Eosinophils % 1 % Basophils % 0 % Neutrophils # 2.0 (1.3-7.7) k/uL Lymphocytes # 1.0 (1.0-4.8) k/uL Monocytes # 0.3 (0-1.0) k/uL Eosinophils # 0.0 (0-0.7) k/uL Basophils # 0.0 (0-0.2) k/uL PT 10.3 (9.0-12.0) sec INR 1.0 (<1.2) APTT 25.3 (22.0-30.0) sec Sodium 137 (137-145) mmol/L Potassium 4.5 (3.5-5.1) mmol/L Chloride 106 (98-107) mmol/L Carbon Dioxide 20 L (22-30) mmol/L Anion Gap 11 mmol/L BUN 28 H (9-20) mg/dL Creatinine 1.84 H (0.66-1.25) mg/dL Est GFR (CKD-EPI)AfAm 42 (>60 ml/min/1.73 sqM) Est GFR (CKD-EPI)NonAf 36 (>60 ml/min/1.73 sqM) Glucose 171 H (74-99) mg/dL Plasma Lactic Acid [place] (0.7-2.0) mmol/L Calcium 8.9 (8.4-10.2) mg/dL Magnesium 1.7 (1.6-2.3) mg/dL Total Bilirubin 0.5 (0.2-1.3) mg/dL AST 91 H (17-59) U/L ALT 31 (4-49) U/L Alkaline Phosphatase 85 (38-126) U/L Creatine Kinase 4048 H* (55-170) U/L Troponin I (0.000-0.034) ng/mL NT-Pro-B Natriuret Pep pg/mL Total Protein 6.3 (6.3-8.2) g/dL Albumin 3.5 (3.5-5.0) g/dL Urine Color Urine Appearance (Clear) Urine pH (5.0-8.0) Ur Specific [place] (1.001-1.035) Urine Protein (Negative) Urine Glucose (UA) (Negative) Urine Ketones (Negative) Urine Blood (Negative) Urine Nitrite (Negative) Urine Bilirubin (Negative) Urine Urobilinogen (<2.0) mg/dL Ur Leukocyte Esterase (Negative) Urine RBC (0-5) /hpf Urine WBC (0-5) /hpf Urine WBC Clumps (None) /hpf Ur Squamous Epith Cells (0-4) /hpf Amorphous Sediment (None) /hpf Urine Bacteria (None) /hpf Urine Mucus (None) /hpf Coronavirus (PCR) (Not Detectd) 04/04/21 04/04/21 04/04/21 Range/Units 13:55 13:55 13:55 WBC (3.8-10.6) k/uL RBC (4.30-5.90) m/uL Hgb (13.0-17.5) gm/dL Hct (39.0-53.0) % MCV (80.0-100.0) fL MCH (25.0-35.0) pg MCHC (31.0-37.0) g/dL RDW (11.5-15.5) % Plt Count (150-450) k/uL MPV Neutrophils % % Lymphocytes % % Monocytes % % Eosinophils % % Basophils % % Neutrophils # (1.3-7.7) k/uL Lymphocytes # (1.0-4.8) k/uL Monocytes # (0-1.0) k/uL Eosinophils # (0-0.7) k/uL Basophils # (0-0.2) k/uL PT (9.0-12.0) sec INR (<1.2) APTT (22.0-30.0) sec Sodium (137-145) mmol/L Potassium (3.5-5.1) mmol/L Chloride (98-107) mmol/L Carbon Dioxide (22-30) mmol/L Anion Gap mmol/L BUN (9-20) mg/dL Creatinine (0.66-1.25) mg/dL Est GFR (CKD-EPI)AfAm (>60 ml/min/1.73 sqM) Est GFR (CKD-EPI)NonAf (>60 ml/min/1.73 sqM) Glucose (74-99) mg/dL Plasma Lactic Acid [place] 1.2 (0.7-2.0) mmol/L Calcium (8.4-10.2) mg/dL Magnesium (1.6-2.3) mg/dL Total Bilirubin (0.2-1.3) mg/dL AST (17-59) U/L ALT (4-49) U/L Alkaline Phosphatase (38-126) U/L Creatine Kinase (55-170) U/L Troponin I 0.044 H* (0.000-0.034) ng/mL NT-Pro-B Natriuret Pep 868 pg/mL Total Protein (6.3-8.2) g/dL Albumin (3.5-5.0) g/dL Urine Color Urine Appearance (Clear) Urine pH (5.0-8.0) Ur Specific [place] (1.001-1.035) Urine Protein (Negative) Urine Glucose (UA) (Negative) Urine Ketones (Negative) Urine Blood (Negative) Urine Nitrite (Negative) Urine Bilirubin (Negative) Urine Urobilinogen (<2.0) mg/dL Ur Leukocyte Esterase (Negative) Urine RBC (0-5) /hpf Urine WBC (0-5) /hpf Urine WBC Clumps (None) /hpf Ur Squamous Epith Cells (0-4) /hpf Amorphous Sediment (None) /hpf Urine Bacteria (None) /hpf Urine Mucus (None) /hpf Coronavirus (PCR) (Not Detectd) 04/04/21 04/04/21 Range/Units 13:56 13:57 WBC (3.8-10.6) k/uL RBC (4.30-5.90) m/uL Hgb (13.0-17.5) gm/dL Hct (39.0-53.0) % MCV (80.0-100.0) fL MCH (25.0-35.0) pg MCHC (31.0-37.0) g/dL RDW (11.5-15.5) % Plt Count (150-450) k/uL MPV Neutrophils % % Lymphocytes % % Monocytes % % Eosinophils % % Basophils % % Neutrophils # (1.3-7.7) k/uL Lymphocytes # (1.0-4.8) k/uL Monocytes # (0-1.0) k/uL Eosinophils # (0-0.7) k/uL Basophils # (0-0.2) k/uL PT (9.0-12.0) sec INR (<1.2) APTT (22.0-30.0) sec Sodium (137-145) mmol/L Potassium (3.5-5.1) mmol/L Chloride (98-107) mmol/L Carbon Dioxide (22-30) mmol/L Anion Gap mmol/L BUN (9-20) mg/dL Creatinine (0.66-1.25) mg/dL Est GFR (CKD-EPI)AfAm (>60 ml/min/1.73 sqM) Est GFR (CKD-EPI)NonAf (>60 ml/min/1.73 sqM) Glucose (74-99) mg/dL Plasma Lactic Acid [place] (0.7-2.0) mmol/L Calcium (8.4-10.2) mg/dL Magnesium (1.6-2.3) mg/dL Total Bilirubin (0.2-1.3) mg/dL AST (17-59) U/L ALT (4-49) U/L Alkaline Phosphatase (38-126) U/L Creatine Kinase (55-170) U/L Troponin I (0.000-0.034) ng/mL NT-Pro-B Natriuret Pep pg/mL Total Protein (6.3-8.2) g/dL Albumin (3.5-5.0) g/dL Urine Color Yellow Urine Appearance Cloudy (Clear) Urine pH 5.5 (5.0-8.0) Ur Specific [place] 1.015 (1.001-1.035) Urine Protein 1+ H (Negative) Urine Glucose (UA) Negative (Negative) Urine Ketones Negative (Negative) Urine Blood Large H (Negative) Urine Nitrite Negative (Negative) Urine Bilirubin Negative (Negative) Urine Urobilinogen <2.0 (<2.0) mg/dL Ur Leukocyte Esterase Large H (Negative) Urine RBC 6 H (0-5) /hpf Urine WBC 171 H (0-5) /hpf Urine WBC Clumps Few H (None) /hpf Ur Squamous Epith Cells <1 (0-4) /hpf Amorphous Sediment Rare H (None) /hpf Urine Bacteria Many H (None) /hpf Urine Mucus Rare H (None) /hpf Coronavirus (PCR) Detected A (Not Detectd) Disposition Clinical Impression: Dehydration, Weakness, UTI (urinary tract infection), COVID-19 Disposition: ADMITTED IP TO THIS [facility] Condition: Stable Is patient prescribed a controlled substance at d/c from ED?: No Referrals: None,Stated [Primary Care Provider] - 1-2 days Decision Date: 04/04/21 Decision Time: 16:17
[2021-04-04 14:17] LABS: Basophils % (A) 0 %; Eosinophils % (A) 1 %; HCT 38.7 % (39.0-53.0); HGB 12.5 gm/dL (13.0-17.5); Lymphocytes % (A) 28 %; MCH 29.7 pg (25.0-35.0); MCHC 32.3 g/dL (31.0-37.0); MCV 91.8 fL (80.0-100.0); Mean Platelet Volume 9.4; Monocytes # (A) 0.3 k/uL (0-1.0); Monocytes % (A) 7 %; Neutrophils % (A) 60 %; Partial Thromboplastin Time 25.3 sec (22.0-30.0); Prothrombin Time 10.3 sec (9.0-12.0); RBC 4.21 m/uL (4.30-5.90); RDW 15.5 % (11.5-15.5); WBC 3.4 k/uL (3.8-10.6)
--- NOTE | 2021-04-04 14:23 | XR ---
EXAMINATION TYPE: XR chest 2V DATE OF EXAM: 04/04/2021 COMPARISON: 11/07/2018 HISTORY: Shortness of breath TECHNIQUE: Frontal and lateral views of the chest are obtained. FINDINGS: Scattered senescent parenchymal changes noted. Hyperinflation compatible with COPD. No evidence for infiltrate. No evidence for atelectasis. Heart size is stable. Mediastinal structures are stable and grossly unremarkable. No evidence for hilar prominence. Degenerative changes dorsal spine. IMPRESSION: 1. No evidence for acute pulmonary disease.
[2021-04-04 14:26] LABS: Albumin 3.5 g/dL (3.5-5.0); Calcium 8.9 mg/dL (8.4-10.2); Magnesium 1.7 mg/dL (1.6-2.3); Potassium 4.5 mmol/L (3.5-5.1); Total Bilirubin 0.5 mg/dL (0.2-1.3); Total Protein 6.3 g/dL (6.3-8.2)
[2021-04-04 15:16] LABS: Amorphous Sediment,Urine Rare /hpf; Appearance,Urine Cloudy (Clear); Bacteria,Urine Many /hpf; Bilirubin,Urine Negative (Negative); Blood,Urine Large (Negative); Color,Urine Yellow; Glucose,Urine (UA) Negative (Negative); Ketones,Urine Negative (Negative); Leukocyte Esterase,Urine Large (Negative); Mucus,Urine Rare /hpf; Nitrite,Urine Negative (Negative); PH, Urine 5.5 (5.0-8.0); Protein,Urine 1+ (Negative); RBC,Urine 6 /hpf (0-5); Specific Gravity,Urine 1.015 (1.001-1.035); Squamous Epithelial Cell,Urine <1 /hpf (0-4); Urobilinogen,Urine <2.0 mg/dL (<2.0); WBC,Urine 171 /hpf (0-5)
[2021-04-04 15:19] LABS: Platelet Count 87 k/uL (150-450)
[2021-04-04] MEDS ORDERED: ACETAMINOPHEN TAB 325 MG TAB PO PRN (16:13)
[2021-04-04] MEDS ORDERED: NALOXONE 0.4 MG/ML 1 ML VIAL IV PRN (16:13)
[2021-04-04] MEDS ORDERED: cefTRIAXone IN SWFI 1,000 MG/10 ML SYRINGE IVP STA (16:15)
[2021-04-04] MEDS: SODIUM CHLORIDE 0.9% 1,000 ML IV SCH ×2 (16:24→22:15)
--- NOTE | 2021-04-04 16:25 | P.HPIM ---
History of Present Illness H&P Date: 04/04/21 This is a 70-year-old male with complex past medical history noted below that presented to the emergency room with generalized weakness. Patient said that he has been feeling weak for the past few days and this morning he was having hard time getting out of bed and subsequently he slid out of bed onto the ground and laid there for 4-5 hours before his called EMS. Patient otherwise denies any fevers or chills. He is having some mild intermittent cough started yesterday. No shortness of breath. No urinary symptoms. Patient was evaluated in the ER and tested positive for covid-19. he is not hypoxic. Urinalysis showed evidence of UTI. He'll be admitted to the hospital for further ma nagement. Review of Systems Review of system: 14 points review of systems were obtained and were negative except to what were mentioned in the HPI. Past Medical History Past Medical History: Diabetes Mellitus Additional Past Medical History / Comment(s): GOUT, BENIGN ESSENTIAL TREMORS., STATES NUMBNESS FROM KNEES TO FEET CAUSING TROUBLE WITH BALANCE-USING CANE., PT STATES LISINOPRIL TAKE TO PROTECT KIDNEYS. History of Any Multi-Drug Resistant Organisms: None Reported Past Surgical History: Orthopedic Surgery Additional Past Surgical History / Comment(s): LEFT and right KNEE ARTHROSCOPIC Past Anesthesia/Blood Transfusion Reactions: No Reported Reaction Past Psychological History: No Psychological Hx Reported Smoking Status: Former smoker Past Alcohol Use History: Rare Past Drug Use History: None Reported - Past Family History Father Family Medical History: Cancer Additional Family Medical History / Comment(s): PROSTATE CANCER Medications and Allergies Home Medications Medication Instructions Recorded Confirmed Type Propranolol HCl [Propranolol HCl 160 mg PO BID 08/17/17 11/07/18 History ER] allopurinoL [Zyloprim] 300 mg PO DAILY 08/17/17 11/07/18 History glipiZIDE [Glucotrol] 5 mg PO BID 08/17/17 11/07/18 History Cefpodoxime Proxetil [Vantin] 200 mg PO Q12HR #10 tab 11/10/18 Rx Insulin Detemir [Levemir Flextouch 28 units SQ HS #0 11/10/18 11/07/18 Rx Pen] Allergies Allergy/AdvReac Type Severity Reaction Status Date / Time Sulfa (Sulfonamide Allergy Severe Anaphylaxis Verified 04/04/21 12:47 Antibiotics) Penicillins Allergy Unknown Unknown Verified 04/04/21 12:47 Childhood Physical Exam Vitals: Vital Signs Temp Pulse Resp BP Pulse Ox 04/04/21 16:19 83 18 133/80 97 04/04/21 12:40 96.7 F L 81 18 116/72 98 Intake and Output 04/04/21 04/04/21 04/04/21 06:59 14:59 22:59 Other: Weight 115.666 kg General: The patient is awake and alert, in no distress Eye: there is normal conjunctiva bilaterally. Neck: The neck is supple, there is no JVD. Cardiovascular: Normal S1-S2, no S3-S4, no murmurs. Respiratory: Lungs clear to auscultation bilaterally Gastrointestinal: Abdomen is soft, nontender Musculoskeletal: There is no pedal edema. Neurological:. Speech is normal. Skin: Skin is warm and dry Results CBC & Chem 7: 04/04/21 13:55 04/04/21 13:55 Labs: Abnormal Lab Results - Last 24 Hours (Table) 04/04/21 04/04/21 04/04/21 Range/Units 13:55 13:55 13:55 WBC 3.4 L (3.8-10.6) k/uL RBC 4.21 L (4.30-5.90) m/uL Hgb 12.5 L (13.0-17.5) gm/dL Hct 38.7 L (39.0-53.0) % Plt Count 87 L (150-450) k/uL Carbon Dioxide 20 L (22-30) mmol/L BUN 28 H (9-20) mg/dL Creatinine 1.84 H (0.66-1.25) mg/dL Glucose 171 H (74-99) mg/dL AST 91 H (17-59) U/L Creatine Kinase 4048 H* (55-170) U/L Troponin I 0.044 H* (0.000-0.034) ng/mL Urine Protein (Negative) Urine Blood (Negative) Ur Leukocyte Esterase (Negative) Urine RBC (0-5) /hpf Urine WBC (0-5) /hpf Urine WBC Clumps (None) /hpf Amorphous Sediment (None) /hpf Urine Bacteria (None) /hpf Urine Mucus (None) /hpf Coronavirus (PCR) (Not Detectd) 04/04/21 04/04/21 Range/Units 13:56 13:57 WBC (3.8-10.6) k/uL RBC (4.30-5.90) m/uL Hgb (13.0-17.5) gm/dL Hct (39.0-53.0) % Plt Count (150-450) k/uL Carbon Dioxide (22-30) mmol/L BUN (9-20) mg/dL Creatinine (0.66-1.25) mg/dL Glucose (74-99) mg/dL AST (17-59) U/L Creatine Kinase (55-170) U/L Troponin I (0.000-0.034) ng/mL Urine Protein 1+ H (Negative) Urine Blood Large H (Negative) Ur Leukocyte Esterase Large H (Negative) Urine RBC 6 H (0-5) /hpf Urine WBC 171 H (0-5) /hpf Urine WBC Clumps Few H (None) /hpf Amorphous Sediment Rare H (None) /hpf Urine Bacteria Many H (None) /hpf Urine Mucus Rare H (None) /hpf Coronavirus (PCR) Detected A (Not Detectd) Assessment and Plan Assessment: 1. Urinary tract infection 2. Rhabdomyolysis 3. COVID-19 in asymptomatic vaccinated patient 4. Stage IIIB chronic kidney disease 5. Non-thrombotic troponin leak secondary to #2 and 4. Patient denies any chest pain. 12-lead EKG in the ER showed no acute ischemic changes 6. Type 2 diabetes, and tinea home dose of insulin plus sliding scale. Today, I reviewed his medication list and lab work results. Continue aggressive IV fluid hydration with normal saline at 131 per hour. Antibiotic with IV ceftriaxone 1 g daily awaiting urine culture. Continue supportive care otherwise. Repeat lab work in the morning.
[2021-04-04] MEDS ORDERED: SODIUM CHLORIDE 0.9% 50 ML IVPB ONE (16:45)
[2021-04-04] MEDS ORDERED: CASIRIVIMAB (REGN10933) (EUA) 600 MG, IMDEVIMAB (REGN10987) (EUA) 600 MG in SODIUM CHLO... IVPB ONE (16:45)
[2021-04-04] MEDS: ONDANSETRON 4 MG/2 ML VIAL IVP PRN (20:03)
[2021-04-04 21:43] LABS: Glucose,Whole Blood 83 mg/dL (75-99)
[2021-04-04] MEDS: lisinopriL 10 MG TAB PO SCH (21:52)
[2021-04-04] MEDS: INSULIN DETEMIR (LEVEMIR) 100 UNIT/ML SYR SQ SCH (22:12)
[2021-04-04] MEDS: PROPRANOLOL LA 80 MG CAP.SA.24H PO SCH (22:42)
[2021-04-05 00:25] LABS: Glucose,Whole Blood 162 mg/dL (75-99)
[2021-04-05 07:10] LABS: Glucose,Whole Blood 123 mg/dL (75-99)
[2021-04-05] MEDS: INSULIN ASPART (NovoLOG) 100 UNIT/ML VIAL SQ SCH ×4 (07:19→20:19)
[2021-04-05] MEDS: INSULIN DETEMIR (LEVEMIR) 100 UNIT/ML SYR SQ SCH ×2 (07:36→20:27)
[2021-04-05] MEDS: PROPRANOLOL LA 80 MG CAP.SA.24H PO SCH ×2 (09:23→20:28)
[2021-04-05 09:30] LABS: Calcium 8.3 mg/dL (8.4-10.2); Potassium 4.5 mmol/L (3.5-5.1)
[2021-04-05 12:29] LABS: Glucose,Whole Blood 170 mg/dL (75-99)
--- NOTE | 2021-04-05 13:27 | P.PN ---
Subjective Patient is feeling well today. His only slightly better compared to yesterday. Creatinine kinase is about the same compared to yesterday. Patient is been getting IV fluid with normal saline at 130/h since yesterday. Objective - Vital Signs Vital signs: Vital Signs Temp 99.0 F 04/05/21 08:00 Pulse 94 04/05/21 08:00 Resp 18 04/05/21 08:00 BP 138/70 04/05/21 08:00 Pulse Ox 97 04/05/21 08:00 Intake & Output 04/04/21 04/05/21 04/05/21 18:59 06:59 18:59 Intake Total 236 Output Total 300 Balance -300 236 Weight 115.666 kg 90.5 kg Intake: Oral 236 Output: Urine 300 Other: Voiding Method Bedpan Urinal Diaper # Voids 1 # Bowel Movements 1 - Exam General: The patient is awake and alert, in no distress Eye: there is normal conjunctiva bilaterally. Neck: The neck is supple, there is no JVD. Cardiovascular: Normal S1-S2, no S3-S4, no murmurs. Respiratory: Lungs clear to auscultation bilaterally Gastrointestinal: Abdomen is soft, nontender Musculoskeletal: There is no pedal edema. Neurological:. Speech is normal. Skin: Skin is warm and dry - Labs CBC & Chem 7: 04/04/21 13:55 04/05/21 08:06 Labs: Abnormal Lab Results - Last 24 Hours (Table) 04/04/21 04/04/21 04/04/21 Range/Units 13:55 13:55 13:55 WBC 3.4 L (3.8-10.6) k/uL RBC 4.21 L (4.30-5.90) m/uL Hgb 12.5 L (13.0-17.5) gm/dL Hct 38.7 L (39.0-53.0) % Plt Count 87 L (150-450) k/uL Sodium (137-145) mmol/L Chloride (98-107) mmol/L Carbon Dioxide 20 L (22-30) mmol/L BUN 28 H (9-20) mg/dL Creatinine 1.84 H (0.66-1.25) mg/dL Glucose 171 H (74-99) mg/dL POC Glucose (mg/dL) (75-99) mg/dL Calcium (8.4-10.2) mg/dL AST 91 H (17-59) U/L Creatine Kinase 4048 H* (55-170) U/L Troponin I 0.044 H* (0.000-0.034) ng/mL Urine Protein (Negative) Urine Blood (Negative) Ur Leukocyte Esterase (Negative) Urine RBC (0-5) /hpf Urine WBC (0-5) /hpf Urine WBC Clumps (None) /hpf Amorphous Sediment (None) /hpf Urine Bacteria (None) /hpf Urine Mucus (None) /hpf Coronavirus (PCR) (Not Detectd) 04/04/21 04/04/21 04/05/21 Range/Units 13:56 13:57 00:24 WBC (3.8-10.6) k/uL RBC (4.30-5.90) m/uL Hgb (13.0-17.5) gm/dL Hct (39.0-53.0) % Plt Count (150-450) k/uL Sodium (137-145) mmol/L Chloride (98-107) mmol/L Carbon Dioxide (22-30) mmol/L BUN (9-20) mg/dL Creatinine (0.66-1.25) mg/dL Glucose (74-99) mg/dL POC Glucose (mg/dL) 162 H (75-99) mg/dL Calcium (8.4-10.2) mg/dL AST (17-59) U/L Creatine Kinase (55-170) U/L Troponin I (0.000-0.034) ng/mL Urine Protein 1+ H (Negative) Urine Blood Large H (Negative) Ur Leukocyte Esterase Large H (Negative) Urine RBC 6 H (0-5) /hpf Urine WBC 171 H (0-5) /hpf Urine WBC Clumps Few H (None) /hpf Amorphous Sediment Rare H (None) /hpf Urine Bacteria Many H (None) /hpf Urine Mucus Rare H (None) /hpf Coronavirus (PCR) Detected A (Not Detectd) 04/05/21 04/05/21 04/05/21 Range/Units 07:08 08:06 08:06 WBC (3.8-10.6) k/uL RBC (4.30-5.90) m/uL Hgb (13.0-17.5) gm/dL Hct (39.0-53.0) % Plt Count (150-450) k/uL Sodium 136 L (137-145) mmol/L Chloride 109 H (98-107) mmol/L Carbon Dioxide 20 L (22-30) mmol/L BUN 24 H (9-20) mg/dL Creatinine 1.70 H (0.66-1.25) mg/dL Glucose 123 H (74-99) mg/dL POC Glucose (mg/dL) 123 H (75-99) mg/dL Calcium 8.3 L (8.4-10.2) mg/dL AST (17-59) U/L Creatine Kinase 4075 H* (55-170) U/L Troponin I (0.000-0.034) ng/mL Urine Protein (Negative) Urine Blood (Negative) Ur Leukocyte Esterase (Negative) Urine RBC (0-5) /hpf Urine WBC (0-5) /hpf Urine WBC Clumps (None) /hpf Amorphous Sediment (None) /hpf Urine Bacteria (None) /hpf Urine Mucus (None) /hpf Coronavirus (PCR) (Not Detectd) 04/05/21 Range/Units 12:09 WBC (3.8-10.6) k/uL RBC (4.30-5.90) m/uL Hgb (13.0-17.5) gm/dL Hct (39.0-53.0) % Plt Count (150-450) k/uL Sodium (137-145) mmol/L Chloride (98-107) mmol/L Carbon Dioxide (22-30) mmol/L BUN (9-20) mg/dL Creatinine (0.66-1.25) mg/dL Glucose (74-99) mg/dL POC Glucose (mg/dL) 170 H (75-99) mg/dL Calcium (8.4-10.2) mg/dL AST (17-59) U/L Creatine Kinase (55-170) U/L Troponin I (0.000-0.034) ng/mL Urine Protein (Negative) Urine Blood (Negative) Ur Leukocyte Esterase (Negative) Urine RBC (0-5) /hpf Urine WBC (0-5) /hpf Urine WBC Clumps (None) /hpf Amorphous Sediment (None) /hpf Urine Bacteria (None) /hpf Urine Mucus (None) /hpf Coronavirus (PCR) (Not Detectd) Microbiology - Last 24 Hours (Table) 04/04/21 13:57 Urine Culture - Preliminary Urine,Voided Assessment and Plan Assessment: 1. Urinary tract infection 2. Rhabdomyolysis 3. COVID-19 in asymptomatic vaccinated patient 4. Stage IIIB chronic kidney disease 5. Non-thrombotic troponin leak secondary to #2 and 4. Patient denies any chest pain. 12-lead EKG in the ER showed no acute ischemic changes 6. Type 2 diabetes, and tinea home dose of insulin plus sliding scale. Today, I reviewed his medication list and lab work results. Continue aggressive IV fluid hydration with normal saline at 75 mL per hour. Antibiotic with IV ceftriaxone 1 g daily awaiting urine culture. Continue supportive care otherwise. Repeat lab work in the morning.
[2021-04-05] MEDS: SODIUM CHLORIDE 0.9% 1,000 ML IV SCH ×3 (13:38→20:33)
[2021-04-05 16:53] LABS: Glucose,Whole Blood 118 mg/dL (75-99)
[2021-04-05 20:06] LABS: Glucose,Whole Blood 93 mg/dL (75-99)
[2021-04-05] MEDS: lisinopriL 10 MG TAB PO SCH (20:28)
[2021-04-06 07:01] LABS: Glucose,Whole Blood 110 mg/dL (75-99)
[2021-04-06] MEDS: INSULIN DETEMIR (LEVEMIR) 100 UNIT/ML SYR SQ SCH ×2 (07:03→20:33)
[2021-04-06] MEDS: INSULIN ASPART (NovoLOG) 100 UNIT/ML VIAL SQ SCH ×3 (07:04→20:33)
[2021-04-06] MEDS: PROPRANOLOL LA 80 MG CAP.SA.24H PO SCH ×2 (09:36→20:32)
[2021-04-06 09:40] LABS: Calcium 8.6 mg/dL (8.4-10.2); Potassium 4.5 mmol/L (3.5-5.1)
--- NOTE | 2021-04-06 11:17 | P.PN ---
Subjective Patient is doing fairly well today. Creatinine kinase is trending down. Awaiting physical therapy evaluation. Patient could not get out of bed since admission. Objective - Vital Signs Vital signs: Vital Signs Temp 98.4 F 04/06/21 03:25 Pulse 78 04/06/21 03:25 Resp 18 04/06/21 03:25 BP 140/73 04/06/21 03:25 Pulse Ox 98 04/06/21 03:25 Intake & Output 04/05/21 04/06/21 04/06/21 18:59 06:59 18:59 Intake Total 712 118 Output Total 725 1400 Balance - 118 Weight 90.5 kg Intake: Oral 712 118 Output: Urine 725 1400 Other: Voiding Method Urinal Diaper # Voids 3 # Bowel Movements 2 - Exam General: The patient is awake and alert, in no distress Eye: there is normal conjunctiva bilaterally. Neck: The neck is supple, there is no JVD. Cardiovascular: Normal S1-S2, no S3-S4, no murmurs. Respiratory: Lungs clear to auscultation bilaterally Gastrointestinal: Abdomen is soft, nontender Musculoskeletal: There is no pedal edema. Neurological:. Speech is normal. Skin: Skin is warm and dry - Labs CBC & Chem 7: 04/04/21 13:55 04/06/21 08:21 Labs: Abnormal Lab Results - Last 24 Hours (Table) 04/05/21 04/05/21 04/06/21 Range/Units 12:09 16:51 07:00 Chloride (98-107) mmol/L BUN (9-20) mg/dL Creatinine (0.66-1.25) mg/dL Glucose (74-99) mg/dL POC Glucose (mg/dL) 170 H 118 H 110 H (75-99) mg/dL Creatine Kinase (55-170) U/L 04/06/21 Range/Units 08:21 Chloride 111 H (98-107) mmol/L BUN 22 H (9-20) mg/dL Creatinine 1.68 H (0.66-1.25) mg/dL Glucose 102 H (74-99) mg/dL POC Glucose (mg/dL) (75-99) mg/dL Creatine Kinase 1565 H* (55-170) U/L Microbiology - Last 24 Hours (Table) 04/04/21 13:57 Urine Culture - Preliminary Urine,Voided Gram Neg Bacilli Assessment and Plan Assessment: 1. Urinary tract infection 2. Rhabdomyolysis 3. COVID-19 in asymptomatic vaccinated patient 4. Stage IIIB chronic kidney disease 5. Non-thrombotic troponin leak secondary to #2 and 4. Patient denies any chest pain. 12-lead EKG in the ER showed no acute ischemic changes 6. Type 2 diabetes, and tinea home dose of insulin plus sliding scale. Today, I reviewed his medication list and lab work results. Aggressive IV fluid hydration since admission and will be discontinued today, encourage oral hydration Antibiotic with IV ceftriaxone 1 g daily awaiting urine culture now showing gram-negative past PT/OT evaluation Continue supportive care otherwise. Repeat lab work in the morning.
[2021-04-06 17:09] LABS: Glucose,Whole Blood 158 mg/dL (75-99)
[2021-04-06 20:19] LABS: Glucose,Whole Blood 180 mg/dL (75-99)
[2021-04-06] MEDS: lisinopriL 10 MG TAB PO SCH (20:32)
[2021-04-07] MEDS: INSULIN DETEMIR (LEVEMIR) 100 UNIT/ML SYR SQ SCH ×2 (06:41→21:11)
[2021-04-07] MEDS: INSULIN ASPART (NovoLOG) 100 UNIT/ML VIAL SQ SCH ×4 (06:42→21:11)
[2021-04-07 06:44] LABS: Glucose,Whole Blood 127 mg/dL (75-99)
[2021-04-07 08:29] LABS: Basophils % (A) 0 %; Eosinophils # (A) 0.1 k/uL (0-0.7); Eosinophils % (A) 2 %; HCT 36.7 % (39.0-53.0); HGB 11.3 gm/dL (13.0-17.5); Hypochromasia Slight; Lymphocytes # (A) 1.1 k/uL (1.0-4.8); Lymphocytes % (A) 31 %; MCH 29.6 pg (25.0-35.0); MCHC 30.8 g/dL (31.0-37.0); MCV 96.1 fL (80.0-100.0); Mean Platelet Volume 9.9; Monocytes # (A) 0.2 k/uL (0-1.0); Monocytes % (A) 4 %; Neutrophils # (A) 2.1 k/uL (1.3-7.7); Neutrophils % (A) 60 %; RBC 3.82 m/uL (4.30-5.90); RDW 14.8 % (11.5-15.5); WBC 3.6 k/uL (3.8-10.6)
[2021-04-07 08:36] LABS: Platelet Count 94 k/uL (150-450)
[2021-04-07 08:50] LABS: Potassium 4.5 mmol/L (3.5-5.1)
[2021-04-07] MEDS: PROPRANOLOL LA 80 MG CAP.SA.24H PO SCH ×2 (09:14→22:29)
[2021-04-07 11:38] LABS: Glucose,Whole Blood 163 mg/dL (75-99)
[2021-04-07] MEDS: ONDANSETRON 4 MG/2 ML VIAL IVP PRN ×2 (13:31→21:09)
--- NOTE | 2021-04-07 13:43 | P.PN ---
Subjective Patient is doing fairly well today. Creatinine kinase trending down. Urine cultures still pending. Objective - Vital Signs Vital signs: Vital Signs Temp 98.2 F 04/07/21 08:15 Pulse 81 04/07/21 08:15 Resp 18 04/07/21 08:15 BP 124/68 04/07/21 08:15 Pulse Ox 97 04/07/21 08:15 Intake & Output 04/06/21 04/07/21 04/07/21 18:59 06:59 18:59 Intake Total 718 670 Output Total 500 500 Balance 218 -500 670 Weight 96 kg Intake: IV 10 Invasive Line 2 10 Oral 718 660 Output: Urine 500 500 Other: Voiding Method Urinal Urinal Urinal Diaper Diaper Diaper # Voids 1 # Bowel Movements 1 - Exam General: The patient is awake and alert, in no distress Eye: there is normal conjunctiva bilaterally. Neck: The neck is supple, there is no JVD. Cardiovascular: Normal S1-S2, no S3-S4, no murmurs. Respiratory: Lungs clear to auscultation bilaterally Gastrointestinal: Abdomen is soft, nontender Musculoskeletal: There is no pedal edema. Neurological:. Speech is normal. Skin: Skin is warm and dry - Labs CBC & Chem 7: 04/07/21 07:57 04/07/21 07:57 Labs: Abnormal Lab Results - Last 24 Hours (Table) 04/06/21 04/06/21 04/07/21 Range/Units 16:53 20:18 06:38 WBC (3.8-10.6) k/uL RBC (4.30-5.90) m/uL Hgb (13.0-17.5) gm/dL Hct (39.0-53.0) % MCHC (31.0-37.0) g/dL Plt Count (150-450) k/uL Chloride (98-107) mmol/L BUN (9-20) mg/dL Creatinine (0.66-1.25) mg/dL Glucose (74-99) mg/dL POC Glucose (mg/dL) 158 H 180 H 127 H (75-99) mg/dL Creatine Kinase (55-170) U/L 04/07/21 04/07/21 04/07/21 Range/Units 07:57 07:57 11:37 WBC 3.6 L (3.8-10.6) k/uL RBC 3.82 L (4.30-5.90) m/uL Hgb 11.3 L (13.0-17.5) gm/dL Hct 36.7 L (39.0-53.0) % MCHC 30.8 L (31.0-37.0) g/dL Plt Count 94 L (150-450) k/uL Chloride 108 H (98-107) mmol/L BUN 24 H (9-20) mg/dL Creatinine 1.62 H (0.66-1.25) mg/dL Glucose 138 H (74-99) mg/dL POC Glucose (mg/dL) 163 H (75-99) mg/dL Creatine Kinase 1118 H* (55-170) U/L Assessment and Plan Assessment: 1. Urinary tract infection 2. Rhabdomyolysis 3. COVID-19 in asymptomatic vaccinated patient 4. Stage IIIB chronic kidney disease 5. Non-thrombotic troponin leak secondary to #2 and 4. Patient denies any chest pain. 12-lead EKG in the ER showed no acute ischemic changes 6. Type 2 diabetes, and tinea home dose of insulin plus sliding scale. Today, I reviewed his medication list and lab work results. Encourage oral hydration Antibiotic with IV ceftriaxone 1 g daily awaiting urine culture now showing gram-negative past PT/OT evaluation, recommended subacute rehab the patient refused Continue supportive care otherwise. Repeat lab work in the morning Anticipate discharge home tomorrow
[2021-04-07 16:43] LABS: Glucose,Whole Blood 167 mg/dL (75-99)
[2021-04-07 18:47] LABS: Glucose,Whole Blood 199 mg/dL (75-99)
[2021-04-07 21:10] LABS: Glucose,Whole Blood 152 mg/dL (75-99)
[2021-04-07] MEDS: lisinopriL 10 MG TAB PO SCH (21:11)
[2021-04-08 04:00] VITALS: RESP 18
[2021-04-08 07:56] LABS: Glucose,Whole Blood 123 mg/dL (75-99)
[2021-04-08] MEDS: INSULIN DETEMIR (LEVEMIR) 100 UNIT/ML SYR SQ SCH (08:01)
[2021-04-08] MEDS: INSULIN ASPART (NovoLOG) 100 UNIT/ML VIAL SQ SCH ×2 (08:01→11:58)
[2021-04-08] MEDS: PROPRANOLOL LA 80 MG CAP.SA.24H PO SCH (08:44)
--- NOTE | 2021-04-08 09:43 | P.DS ---
Providers Date of admission: 04/04/21 16:47 Expected date of discharge: 04/08/21 Attending physician: Vipul Parikh Primary care physician: Stated None Hospital Course: This is a 70-year-old male with past medical history noted below that presented to the emergency room with worsening weakness. Patient was evaluated in the ER and admitted to the hospital for further management of his medical problems noted below. 1. Urinary tract infection 2. Rhabdomyolysis 3. COVID-19 in asymptomatic vaccinated patient 4. Stage IIIB chronic kidney disease 5. Non-thrombotic troponin leak secondary to #2 and 4. Patient denies any chest pain. 12-lead EKG in the ER showed no acute ischemic changes 6. Type 2 diabetes Patient was treated with aggressive IV fluid hydration and antibiotic with IV ceftriaxone. Urine culture grew Klebsiella pneumonia. Patient will finish antibiotic course with Keflex for a total of 7 days of antibiotic. Patient's overall condition improved significantly throughout his hospital stay. He was seen and evaluated by PT/OT. Subacute rehab recommended that patient refused and elected to go home. He would be discharged home in a stable condition. Physical exam: General: The patient is awake and alert, in no distress Eye: there is normal conjunctiva bilaterally. Neck: The neck is supple, there is no JVD. Cardiovascular: Normal S1-S2, no S3-S4, no murmurs. Respiratory: Lungs clear to auscultation bilaterally Gastrointestinal: Abdomen is soft, nontender Musculoskeletal: There is no pedal edema. Neurological:. Speech is normal. Skin: Skin is warm and dry Patient Condition at Discharge: Stable Plan - Discharge Summary Discharge Rx Participant: No New Discharge Prescriptions: New Cephalexin [Keflex] 500 mg PO Q6HR 1 Days #12 cap Continue allopurinoL [Zyloprim] 300 mg PO DAILY Propranolol HCl [Propranolol HCl ER] 160 mg PO BID Lisinopril [Zestril] 10 mg PO HS Semaglutide [Ozempic] 0.5 mg SQ TU Insulin Detemir [Levemir Flextouch Pen] 70 units SQ BID Insulin Aspart [NovoLOG Flexpen] 10 units SQ AC-TID PRN PRN Reason: HIGH BLOOD SUGAR glipiZIDE [Glucotrol] 10 mg PO BID Acetaminophen Tab [Tylenol] 1,000 mg PO Q6HR PRN PRN Reason: Pain Discharge Medication List Propranolol HCl [Propranolol HCl ER] 160 mg PO BID 08/17/17 [History] allopurinoL [Zyloprim] 300 mg PO DAILY 08/17/17 [History] Acetaminophen Tab [Tylenol] 1,000 mg PO Q6HR PRN 04/04/21 [History] Insulin Aspart [NovoLOG Flexpen] 10 units SQ AC-TID PRN 04/04/21 [History] Insulin Detemir [Levemir Flextouch Pen] 70 units SQ BID 04/04/21 [History] Lisinopril [Zestril] 10 mg PO HS 04/04/21 [History] Semaglutide [Ozempic] 0.5 mg SQ TU 04/04/21 [History] glipiZIDE [Glucotrol] 10 mg PO BID 04/04/21 [History] Cephalexin [Keflex] 500 mg PO Q6HR 1 Days #12 cap 04/08/21 [Rx] Follow up Appointment(s)/Referral(s): None,Stated [Primary Care Provider] - 1-2 days Discharge Disposition: HOME SELF-CARE
[2021-04-08 11:55] LABS: Glucose,Whole Blood 151 mg/dL (75-99)
[2021-04-08 14:48] VITALS: BP 116/67; PULSE 73; TEMP 98.2
[2021-04-08 17:20] LABS: Glucose,Whole Blood 163 mg/dL (75-99)
== END 2021-04-08 19:14 | disposition home or self-care (01) | DRG 689 ==
LOC: EC 12:37 → 3SCARD 16:47
PROVIDERS: ADMIT Internal Medicine; ATTEND Internal Medicine
DX: N39.0 Urinary tract infection, site not specified (principal); U07.1 COVID-19; M62.82 Rhabdomyolysis; E11.22 Type 2 diabetes mellitus with diabetic chronic kidney disease; E86.0 Dehydration; Z20.822 Contact with and (suspected) exposure to COVID-19; N18.32 Chronic kidney disease, stage 3b; G25.0 Essential tremor; B96.1 Klebsiella pneumoniae [K. pneumoniae] as the cause of diseases classified elsewhere; B35.9 Dermatophytosis, unspecified; Z79.4 Long term (current) use of insulin; Z79.84 Long term (current) use of oral hypoglycemic drugs; Z79.899 Other long term (current) drug therapy; Z80.42 Family history of malignant neoplasm of prostate; Z87.891 Personal history of nicotine dependence; M10.9 Gout, unspecified; R05 Cough
CPT/HCPCS: 36415; 71046; 80048; 80053; 81001; 82550; 83605; 83735; 83880; 84484; 85025; 85610; 85730; 87077; 87086; 87186; 87324; 87635; 93005; 96360; 96361; 99285

== ENCOUNTER 2022-06-16 13:34 | Emergency (ER) | payer MEDICARE, OTHER ==
[2022-06-16 13:48] VITALS: RESP 18
[2022-06-16 14:08] LABS: Appearance,Urine Clear (Clear); Bilirubin,Urine Negative (Negative); Blood,Urine Negative (Negative); Color,Urine Light Yellow; Glucose,Urine (UA) Negative (Negative); Ketones,Urine Negative (Negative); Leukocyte Esterase,Urine Negative (Negative); Nitrite,Urine Negative (Negative); Protein,Urine Trace (Negative); Specific Gravity,Urine 1.011 (1.001-1.035); Urobilinogen,Urine <2.0 mg/dL (<2.0)
[2022-06-16] MEDS ORDERED: SODIUM CHLORIDE 0.9% 1,000 ML IV STA ×2 (14:26→18:17)
--- NOTE | 2022-06-16 14:31 | ED ---
General Adult HPI - General Chief complaint: Weakness Stated complaint: weakness Time Seen by Provider: 06/16/22 13:43 Source: patient, family, RN notes reviewed Mode of arrival: ambulatory Limitations: no limitations - History of Present Illness Initial comments: Patient is a pleasant 72-year-old male presenting to the emergency department with general weakness. Symptoms have been occurring for several days and somewhat intermittent. Patient did have a fall in the bathroom yesterday. Patient did not have syncope. No head injury or loss of consciousness. No injury. Patient states he had similar symptoms once previously associated with urinary tract infection. No dysuria. Patient did have mild back discomfort a couple days ago, none since that time. Patient did have chills and nasal congestion a couple days ago however that seems to have resolved. No dyspnea. No chest or abdominal pain. No isolated area of weakness. No confusion - Related Data Home Medications Medication Instructions Recorded Confirmed Propranolol HCl [Propranolol HCl 160 mg PO BID 08/17/17 06/16/22 ER] allopurinoL [Zyloprim] 300 mg PO DAILY 08/17/17 06/16/22 Acetaminophen Tab [Tylenol] 1,000 mg PO BID 04/04/21 06/16/22 Insulin Detemir [Levemir Flextouch 61 units SQ BID 04/04/21 06/16/22 Pen] lisinopriL [Zestril] 5 mg PO HS 06/16/22 06/16/22 Allergies Allergy/AdvReac Type Severity Reaction Status Date / Time Sulfa (Sulfonamide Allergy Severe Anaphylaxis Verified 06/16/22 15:01 Antibiotics) Penicillins Allergy Unknown Unknown Verified 06/16/22 15:01 Childhood Review of Systems ROS Statement: Those systems with pertinent positive or pertinent negative responses have been documented in the HPI. ROS Other: All systems not noted in ROS Statement are negative. Constitutional: Denies: fever Eyes: Denies: eye pain ENT: Denies: ear pain Respiratory: Reports: as per HPI Endocrine: Reports: as per HPI, fatigue Genitourinary: Reports: as per HPI. Denies: dysuria Musculoskeletal: Reports: as per HPI Neurological: Reports: as per HPI. Denies: headache, confusion Past Medical History Past Medical History: Diabetes Mellitus Additional Past Medical History / Comment(s): GOUT, BENIGN ESSENTIAL TREMORS., STATES NUMBNESS FROM KNEES TO FEET CAUSING TROUBLE WITH BALANCE-USING CANE., PT STATES LISINOPRIL TAKE TO PROTECT KIDNEYS. History of Any Multi-Drug Resistant Organisms: None Reported Past Surgical History: Orthopedic Surgery Additional Past Surgical History / Comment(s): LEFT and right KNEE ARTHROSCOPIC, cystocopies for kidney stones years back. Past Anesthesia/Blood Transfusion Reactions: No Reported Reaction Past Psychological History: No Psychological Hx Reported Smoking Status: Former smoker Past Alcohol Use History: Rare Past Drug Use History: None Reported - Past Family History Father Family Medical History: Cancer Additional Family Medical History / Comment(s): PROSTATE CANCER General Exam Limitations: no limitations General appearance: alert, in no apparent distress Head exam: Present: atraumatic, normocephalic Eye exam: Present: normal appearance, PERRL, EOMI ENT exam: Present: normal oropharynx Neck exam: Present: normal inspection. Absent: tenderness, meningismus Respiratory exam: Present: normal lung sounds bilaterally Cardiovascular Exam: Present: regular rate, normal rhythm GI/Abdominal exam: Present: soft. Absent: tenderness Extremities exam: Present: normal inspection Neurological exam: Present: alert, oriented X3, CN II-XII intact. Absent: motor sensory deficit Expanded Neurological exam: Present: protecting the airway Speech: Present: fluid speech Cranial nerves: EOM's Intact: Normal Motor strength exam: RUE: 5, LUE: 5, RLE: 5, LLE: 5 Eye Response: (4) open spontaneously Motor Response: (6) obeys commands Verbal Response: (5) oriented Psychiatric exam: Present: normal affect, normal mood Skin exam: Present: normal color Course Vital Signs 06/16/22 13:45 Temperature 98.5 F Pulse Rate 68 Respiratory 18 Rate Blood Pressure 114/62 O2 Sat by Pulse 97 Oximetry EKG Findings - EKG Results: EKG: interpreted by ERMD (Left axis. Septal Q waves. LVH. No acute ST change.), sinus rhythm Medical Decision Making - Medical Decision Making Patient reevaluated and resting comfortably in bed. Patient and family updated on results and plan. Case was discussed with Dr. Weldon, covering hospital call who does feel patient can likely be discharged. Patient was reevaluated and updated and would like to be discharged home. Patient will receive fluid bolus prior to this. Was pt. sent in by a medical professional or institution (, PA, FUNERAL DIRECTOR'S ASSISTANT, urgent care, hospital, or residential...) When possible be specific @ -[No] Did you speak to anyone other than the patient for history (EMS, parent, family, police, friend...)? What history was obtained from this source @ - is present and provides additional history Did you review nursing and triage notes (agree or disagree)? Why? @ -[I reviewed and agree with nursing and triage notes] Were old charts reviewed (outside hosp., previous admission, EMS record, old EKG, old radiological studies, urgent care reports/EKG's, residential records)? Report findings @ -[No old charts were reviewed] Differential Diagnosis (chest pain, altered mental status, abdominal pain women, abdominal pain men, vaginal bleeding, weakness, fever, dyspnea, syncope, headache, dizziness, GI bleed, back pain, seizure, CVA, palpatations, mental health)? @ -Differential Dizziness: Benign paroxysmal positional Vertigo, Menieres disease, otitis media, acoustic neuroma, vertebrobasilar insufficiency, cerebellar stroke, encephalitis, hypovolemic, arrhythmia, coronary artery syndrome, anemia, this is not meant to be an all-inclusive list EKG interpreted by me (3pts min.). @ -[As above] X-rays interpreted by me (1pt min.). @ -As above CT interpreted by me (1pt min.). @ -Report reviewed U/S interpreted by me (1pt. min.). @ -[None done] What testing was considered but not performed or refused? (CT, X-rays, U/S, labs)? Why? @ -[None] What meds were considered but not given or refused? Why? @ -[None] Did you discuss the management of the patient with other professionals (professionals i.e. , PA, FUNERAL DIRECTOR'S ASSISTANT, lab, RT, psych nurse, mental health social worker, hearing screener, teacher, project control officer, showcase trimmer)? Give summary @ -Case was discussed with Dr. Weldon Was smoking cessation discussed for >3mins.? @ -[No] Was critical care preformed (if so, how long)? @ -[No] Were there social determinants of health that impacted care today? How? (Homelessness, low income, unemployed, alcoholism, drug addiction, transportati on, low edu. Level, literacy, decrease access to med. care, [place] [facility], rehab)? @ -[No] Was there de-escalation of care discussed even if they declined (Discuss DNR or withdrawal of care, Hospice)? DNR status @ -[No] What co-morbidities impacted this encounter? (DM, HTN, Smoking, COPD, CAD, Cancer, CVA, ARF, Chemo, Hep., AIDS, mental health diagnosis, sleep apnea, morbid obesity)? @ -[None] Was patient admitted / discharged? Hospital course, mention meds given and route, prescriptions, significant lab abnormalities, going to OR and other pertinent info. @ -Discharged Undiagnosed new problem with uncertain prognosis? @ -[No] Drug Therapy requiring intensive monitoring for toxicity (Heparin, Nitro, Insulin, Cardizem)? @ -[No] Were any procedures done? @ -[No] Diagnosis/symptom? @ -Lightheadedness, renal insufficiency Acute, or Chronic, or Acute on Chronic? @ -Acute, acute on chronic Uncomplicated (without systemic symptoms) or Complicated (systemic symptoms)? @ -Uncomplicated Side effects of treatment? @ -[No] Exacerbation, Progression, or Severe Exacerbation? @ -[No] Poses a threat to life or bodily function? How? (Chest pain, [place], [place], pneumonia, PE, COPD, DKA, ARF, appy, cholecystitis, CVA, Diverticulitis, Homicidal, Suicidal, threat to staff... and all critical care pts) @ -[No] - Lab Data Result diagrams: 06/16/22 14:38 06/16/22 14:38 Lab Results 06/16/22 06/16/22 06/16/22 Range/Units 13:49 14:38 14:38 WBC 9.2 (3.8-10.6) k/uL RBC 3.74 L (4.30-5.90) m/uL Hgb 11.4 L (13.0-17.5) gm/dL Hct 35.4 L (39.0-53.0) % MCV 94.7 (80.0-100.0) fL MCH 30.6 (25.0-35.0) pg MCHC 32.3 (31.0-37.0) g/dL RDW 13.9 (11.5-15.5) % Plt Count 117 L (150-450) k/uL MPV 9.7 Neutrophils % 69 % Lymphocytes % 20 % Monocytes % 7 % Eosinophils % 1 % Basophils % 0 % Neutrophils # 6.4 (1.3-7.7) k/uL Lymphocytes # 1.8 (1.0-4.8) k/uL Monocytes # 0.7 (0-1.0) k/uL Eosinophils # 0.1 (0-0.7) k/uL Basophils # 0.0 (0-0.2) k/uL Hypochromasia Moderate PT 10.5 (9.0-12.0) sec INR 1.0 (<1.2) APTT 26.5 (22.0-30.0) sec Sodium (137-145) mmol/L Potassium (3.5-5.1) mmol/L Chloride (98-107) mmol/L Carbon Dioxide (22-30) mmol/L Anion Gap mmol/L BUN (9-20) mg/dL Creatinine (0.66-1.25) mg/dL Est GFR (CKD-EPI)AfAm (>60 ml/min/1.73 sqM) Est GFR (CKD-EPI)NonAf (>60 ml/min/1.73 sqM) Glucose (74-99) mg/dL Plasma Lactic Acid [place] (0.7-2.0) mmol/L Calcium (8.4-10.2) mg/dL Magnesium (1.6-2.3) mg/dL Total Bilirubin (0.2-1.3) mg/dL AST (17-59) U/L ALT (4-49) U/L Alkaline Phosphatase (38-126) U/L Troponin I (0.000-0.034) ng/mL Total Protein (6.3-8.2) g/dL Albumin (3.5-5.0) g/dL TSH (0.465-4.680) mIU/L Free T4 (0.78-2.19) ng/dL Free T3 pg/mL (2.8-5.3) pg/ml Urine Color Light Yellow Urine Appearance Clear (Clear) Urine pH 5.0 (5.0-8.0) Ur Specific [place] 1.011 (1.001-1.035) Urine Protein Trace H (Negative) Urine Glucose (UA) Negative (Negative) Urine Ketones Negative (Negative) Urine Blood Negative (Negative) Urine Nitrite Negative (Negative) Urine Bilirubin Negative (Negative) Urine Urobilinogen <2.0 (<2.0) mg/dL Ur Leukocyte Esterase Negative (Negative) 06/16/22 06/16/22 06/16/22 Range/Units 14:38 14:38 14:38 WBC (3.8-10.6) k/uL RBC (4.30-5.90) m/uL Hgb (13.0-17.5) gm/dL Hct (39.0-53.0) % MCV (80.0-100.0) fL MCH (25.0-35.0) pg MCHC (31.0-37.0) g/dL RDW (11.5-15.5) % Plt Count (150-450) k/uL MPV Neutrophils % % Lymphocytes % % Monocytes % % Eosinophils % % Basophils % % Neutrophils # (1.3-7.7) k/uL Lymphocytes # (1.0-4.8) k/uL Monocytes # (0-1.0) k/uL Eosinophils # (0-0.7) k/uL Basophils # (0-0.2) k/uL Hypochromasia PT (9.0-12.0) sec INR (<1.2) APTT (22.0-30.0) sec Sodium 139 (137-145) mmol/L Potassium 5.1 (3.5-5.1) mmol/L Chloride 110 H (98-107) mmol/L Carbon Dioxide 21 L (22-30) mmol/L Anion Gap 8 mmol/L BUN 48 H (9-20) mg/dL Creatinine 2.04 H (0.66-1.25) mg/dL Est GFR (CKD-EPI)AfAm 37 (>60 ml/min/1.73 sqM) Est GFR (CKD-EPI)NonAf 32 (>60 ml/min/1.73 sqM) Glucose 86 (74-99) mg/dL Plasma Lactic Acid [place] 0.8 (0.7-2.0) mmol/L Calcium 9.0 (8.4-10.2) mg/dL Magnesium 2.1 (1.6-2.3) mg/dL Total Bilirubin 0.7 (0.2-1.3) mg/dL AST 33 (17-59) U/L ALT 19 (4-49) U/L Alkaline Phosphatase 54 (38-126) U/L Troponin I 0.022 (0.000-0.034) ng/mL Total Protein 6.4 (6.3-8.2) g/dL Albumin 3.7 (3.5-5.0) g/dL TSH 1.120 (0.465-4.680) mIU/L Free T4 0.83 (0.78-2.19) ng/dL Free T3 pg/mL 2.1 L (2.8-5.3) pg/ml Urine Color Urine Appearance (Clear) Urine pH (5.0-8.0) Ur Specific [place] (1.001-1.035) Urine Protein (Negative) Urine Glucose (UA) (Negative) Urine Ketones (Negative) Urine Blood (Negative) Urine Nitrite (Negative) Urine Bilirubin (Negative) Urine Urobilinogen (<2.0) mg/dL Ur Leukocyte Esterase (Negative) - Radiology Data Radiology results: report reviewed (Computed tomography scan of the brain shows no acute process.) Interpreted by me: Chest x-ray shows no acute process Disposition Clinical Impression: Lightheadedness, Acute on chronic renal insufficiency Disposition: HOME SELF-CARE Condition: Stable Instructions (If sedation given, give patient instructions): Chronic Kidney Disease (ED), Lightheadedness (ED), Near Syncope (ED) Additional Instructions: Please do follow-up with your primary care physician in the next day or 2 for recheck. Have primary care physician recheck kidney function and reconsider dosing on insulin. Return for lightheadedness, difficulty walking, passing out, worsening or changing symptoms, or any other concerns. Is patient prescribed a controlled substance at d/c from ED?: No Referrals: Katie Mosher DO [Primary Care Provider] - 1-2 days Time of Disposition: 18:22
[2022-06-16 14:53] LABS: Basophils % (A) 0 %; Eosinophils # (A) 0.1 k/uL (0-0.7); Eosinophils % (A) 1 %; HCT 35.4 % (39.0-53.0); HGB 11.4 gm/dL (13.0-17.5); Hypochromasia Moderate; Lymphocytes # (A) 1.8 k/uL (1.0-4.8); Lymphocytes % (A) 20 %; MCH 30.6 pg (25.0-35.0); MCHC 32.3 g/dL (31.0-37.0); MCV 94.7 fL (80.0-100.0); Mean Platelet Volume 9.7; Monocytes # (A) 0.7 k/uL (0-1.0); Monocytes % (A) 7 %; Neutrophils # (A) 6.4 k/uL (1.3-7.7); Neutrophils % (A) 69 %; Platelet Count 117 k/uL (150-450); RBC 3.74 m/uL (4.30-5.90); RDW 13.9 % (11.5-15.5); WBC 9.2 k/uL (3.8-10.6)
[2022-06-16 15:16] LABS: Partial Thromboplastin Time 26.5 sec (22.0-30.0); Prothrombin Time 10.5 sec (9.0-12.0)
[2022-06-16 15:17] LABS: Albumin 3.7 g/dL (3.5-5.0); Magnesium 2.1 mg/dL (1.6-2.3); Total Bilirubin 0.7 mg/dL (0.2-1.3); Total Protein 6.4 g/dL (6.3-8.2)
[2022-06-16 15:34] LABS: T4, Free (Free Thyroxine) 0.83 ng/dL (0.78-2.19)
[2022-06-16 15:41] LABS: Potassium 5.1 mmol/L (3.5-5.1)
--- NOTE | 2022-06-16 16:44 | XR ---
EXAMINATION TYPE: XR chest 2V DATE OF EXAM: 06/16/2022 COMPARISON: 04/04/2021 INDICATION: Venous TECHNIQUE: Frontal and lateral views of the chest are obtained. FINDINGS: The heart size is normal. The pulmonary vasculature is normal. The lungs are clear. IMPRESSION: 1. No acute pulmonary process.
--- NOTE | 2022-06-16 16:48 | CT ---
EXAMINATION TYPE: CT brain wo con DATE OF EXAM: 06/16/2022 COMPARISON: None HISTORY: Weakness CT DLP: 1172 mGycm Automated exposure control for dose reduction was used. Images of the brain obtained without contrast. There is cerebral cortical atrophy. There is no mass effect or midline shift. No sign of intracranial hemorrhage. There is patchy hypodensity in the periventricular white matter and more noticeable in t he right posterior frontal lobe. The calvarium is intact. There is mucosal thickening in the ethmoid and sphenoid sinuses. Skull base is intact. There is normal aeration of the mastoid sinuses. IMPRESSION: Cerebral atrophy and chronic small vessel ischemia. No acute intracranial abnormality. Sinusitis.
[2022-06-16 19:19] VITALS: BP 131/74; PULSE 76; TEMP 98.4
== END 2022-06-16 19:19 | disposition home or self-care (01) ==
LOC: EC 13:34
DX: R42 Dizziness and giddiness (principal); N17.9 Acute kidney failure, unspecified; I67.82 Cerebral ischemia; E11.9 Type 2 diabetes mellitus without complications; Z87.891 Personal history of nicotine dependence; Z79.4 Long term (current) use of insulin; Z88.2 Allergy status to sulfonamides; Z88.0 Allergy status to penicillin
CPT/HCPCS: 36415; 70450; 71046; 80053; 81003; 83605; 83735; 84439; 84443; 84481; 84484; 85025; 85610; 85730; 93005; 96360; 96361; 99285